=== PATIENT | male | born 1960 | race African-American/Black ===

== ENCOUNTER 2017-10-27 22:12 | Inpatient (IN) | payer OTHER ==
[~2017-10-27] VITALS: Ht 182.9 cm; Wt 90.7 kg
[2017-10-27] MEDS ORDERED: TRANEXAMIC ACID 1,000 MG in SODIUM CHLORIDE 0.9% 100 ML IV ONE (23:00)
[2017-10-27] MEDS ORDERED: THROMBIN (BOVINE) 5000 UNITS/VIAL TOP ONE (23:00)
[2017-10-27 23:15] LABS: HEMATOCRIT 27.1 % (42.0-52.0); HEMOGLOBIN 7.9 g/dL (14.0-18.0); MEAN CORPUSCULAR HEMOGLOBIN 26.9 pg (28.0-32.0); MEAN CORPUSCULAR VOLUME 92.6 fL (80.0-94.0); PLATELET 550 x1000/uL (130-400); RED BLOOD CELL COUNT 2.93 mill/uL (4.7-6.1); RED CELL DISTRIBUTION WIDTH 17.5 % (11.6-14.6)
[2017-10-27] MEDS ORDERED: SODIUM CHLORIDE 0.9% 1,000 ML IV ONE (23:45)
[2017-10-28] VITALS (59 sets, daily range): BP systolic 105–140; BP diastolic 60–87
[2017-10-28] MEDS ORDERED: MORPHINE SULFATE 10 MG/ML CPJ IV SCH (00:15)
[2017-10-28] MEDS ORDERED: MORPHINE SULFATE 10 MG/ML CPJ IV ONE (00:15)
[2017-10-28] MEDS: INSULIN REGULAR (DRIP) 100 UNITS in SODIUM CHLORIDE 0.9% 100 ML IV SCH ×4 (00:19→21:41)
[2017-10-28] MEDS ORDERED: LEVOFLOXACIN 750MG PREMIX 150 ML IV SCH (00:24)
[2017-10-28 00:40] LABS: PARTIAL THROMBOPLASTIN TIME 58.5 sec (23.4-31.0)
[2017-10-28 01:00] LABS: PROTHROMBIN TIME 102.7 sec (9.4-11.6)
[2017-10-28 01:01] LABS: INR 9.8
[2017-10-28 02:13] LABS: PHOSPHORUS 6.9 mg/dL (2.5-4.9)
[2017-10-28] MEDS ORDERED: PHYTONADIONE 10MG/ML AMP IV SCH (02:37)
[2017-10-28 04:02] LABS: CLARITY URINE CLEAR (CLEAR); COLOR URINE YELLOW (YELLOW); KETONES URINE TRACE (NEGATIVE); LEUKOCYTE ESTERASE URINE NEGATIVE (NEGATIVE); NITRITE URINE NEGATIVE (NEGATIVE); OCCULT BLOOD URINE NEGATIVE (NEGATIVE); PROTEIN URINE NEGATIVE (NEGATIVE); SPECIFIC GRAVITY URINE 1.022 (1.005-1.030)
[2017-10-28] MEDS ORDERED: SODIUM CHLORIDE 0.9% 1,000 ML IV ONE (05:00)
[2017-10-28 05:48] LABS: PHOSPHORUS 6.1 mg/dL (2.5-4.9)
[2017-10-28] MEDS: SODIUM CHLORIDE 0.9% 1,000 ML IV SCH ×3 (09:43→19:00)
[2017-10-28] MEDS ORDERED: VERAPAMIL HCL 2.5 MG/1 ML 2ML VIAL IV PRN (10:15)
[2017-10-28] MEDS ORDERED: MORPHINE SULFATE 4 MG/ML CPJ (NOT FOR IM USE) IV PRN (10:30)
[2017-10-28] MEDS ORDERED: HYDROCODONE/ACETAMINOPHEN 5/325MG TABLET PO PRN (10:30)
[2017-10-28] MEDS ORDERED: BUME2TAB3 PO (10:52)
[2017-10-28] MEDS ORDERED: BOSE62.5 PO (10:52)
[2017-10-28] MEDS ORDERED: DIGO125T82 PO (10:52)
[2017-10-28] MEDS ORDERED: POTA10TA2 PO (10:52)
[2017-10-28] MEDS ORDERED: WARF5TAB73 PO (10:52)
[2017-10-28] MEDS ORDERED: DOXY100C42 PO (10:52)
[2017-10-28] MEDS ORDERED: VIAG50 PO (10:52)
[2017-10-28] MEDS ORDERED: AMOX-424 PO (10:52)
[2017-10-28] MEDS ORDERED: SPIR25TA4 PO (10:52)
[2017-10-28] MEDS ORDERED: VANCOMYCIN 1500MG in DEXTROSE 5% WATER 250ML IV SCH (12:00)
[2017-10-28] MEDS ORDERED: DEXTROSE 50% WATER 50ML SYRINGE IV PRN ×2 (12:30)
[2017-10-28 12:41] LABS: INR 2.6; PROTHROMBIN TIME 27.2 sec (9.4-11.6)
[2017-10-28 12:58] LABS: CHLORIDE 89 mEq/L (98-107)
[2017-10-28] MEDS: PANTOPRAZOLE SODIUM 40 MG/VIAL IV SCH (13:02)
[2017-10-28] MEDS: BLOOD SUGAR DIAGNOSTIC STRIP TEST SCH ×11 (13:26→23:12)
[2017-10-28] MEDS: FOLIC ACID/VITAMIN B COMP W-C TABLET PO SCH (13:52)
[2017-10-28] MEDS: PIPERACILLIN/TAZ 2.25G PREMIX 50 ML IV SCH ×2 (13:52→22:00)
[2017-10-28] MEDS ORDERED: PIPERACILLIN/TAZ 3.375G PREMIX 50 ML IV SCH (14:00)
[2017-10-28] MEDS: CALCIUM ACETATE 667MG CAPSULE PO SCH (17:18)
[2017-10-28] MEDS ORDERED: INSULIN GLARGINE UD 100 UNITS/ML SYR SUBCUT ONE (22:30)
[2017-10-29] VITALS (29 sets, daily range): BP systolic 100–128; BP diastolic 51–75
[2017-10-29] MEDS: PIPERACILLIN/TAZ 2.25G PREMIX 50 ML IV SCH ×3 (05:00→23:01)
[2017-10-29 06:07] LABS: MEAN CORPUSCULAR HEMOGLOBIN 25.8 pg (28.0-32.0); MEAN PLATELET VOLUME 7.8 fl (7.4-10.4); PLATELET 446 x1000/uL (130-400); RED BLOOD CELL COUNT 2.53 mill/uL (4.7-6.1); RED CELL DISTRIBUTION WIDTH 15.7 % (11.6-14.6)
[2017-10-29] MEDS: BLOOD SUGAR DIAGNOSTIC STRIP TEST SCH ×4 (06:59→21:00)
[2017-10-29] MEDS: INSULIN LISPRO 100 UNITS/ML SUBCUT SCH ×7 (07:05→22:05)
[2017-10-29] MEDS: CALCIUM ACETATE 667MG CAPSULE PO SCH ×3 (07:35→18:08)
[2017-10-29 07:53] LABS: HEMOGLOBIN. 6.5 g/dL (14.0-18.0)
[2017-10-29 07:54] LABS: HEMATOCRIT. 20.5 % (42.0-52.0)
[2017-10-29] MEDS: PANTOPRAZOLE SODIUM 40 MG/VIAL IV SCH (08:29)
[2017-10-29] MEDS: FOLIC ACID/VITAMIN B COMP W-C TABLET PO SCH (08:29)
[2017-10-29 09:50] LABS: PLATELET ESTIMATE SLIGHTLY INCREASED
[2017-10-29] MEDS: DILTIAZEM HCL 30MG TABLET PO SCH ×2 (12:57→21:55)
[2017-10-29 14:38] LABS: HEMATOCRIT 22.9 % (42.0-52.0); HEMOGLOBIN 7.4 g/dL (14.0-18.0)
[2017-10-29 14:45] LABS: INR 1.3
[2017-10-29] MEDS ORDERED: VANCOMYCIN 1250MG in DEXTROSE 5% WATER 250ML IV NR (17:00)
[2017-10-29] MEDS ORDERED: DIGOXIN 125MCG TABLET PO SCH (18:00)
[2017-10-29] MEDS ORDERED: INSULIN GLARGINE UD 100 UNITS/ML SYR SUBCUT SCH (22:00)
[2017-10-30] VITALS: BP 115/62
[2017-10-30 04:00] VITALS: BP 108/53
[2017-10-30] MEDS: DILTIAZEM HCL 30MG TABLET PO SCH (05:48)
[2017-10-30] MEDS: PIPERACILLIN/TAZ 2.25G PREMIX 50 ML IV SCH (05:49)
[2017-10-30 06:15] LABS: HEMATOCRIT. 22.2 % (42.0-52.0); HEMOGLOBIN. 7.3 g/dL (14.0-18.0); MEAN CORPUSCULAR HEMOGLOBIN 26.9 pg (28.0-32.0); MEAN CORPUSCULAR VOLUME 82.1 fL (80.0-94.0); MEAN PLATELET VOLUME 8.1 fl (7.4-10.4); PLATELET 395 x1000/uL (130-400); RED BLOOD CELL COUNT 2.71 mill/uL (4.7-6.1); RED CELL DISTRIBUTION WIDTH 15.6 % (11.6-14.6)
[2017-10-30] MEDS: BLOOD SUGAR DIAGNOSTIC STRIP TEST SCH (06:28)
[2017-10-30] MEDS: INSULIN LISPRO 100 UNITS/ML SUBCUT SCH ×2 (06:28)
[2017-10-30 08:00] VITALS: BP 106/58
[2017-10-30 13:06] LABS: PLATELET ESTIMATE NORMAL
[2017-10-30] MEDS ORDERED: EPOETIN ALFA 10000UNITS/ML VIAL SUBCUT SCH (21:00)
== END 2017-10-30 09:07 | disposition short-term general hospital (02) | DRG 871 ==
LOC: ER 22:29 → MICUNO 10-28 00:05 → ENRESERV 10-28 07:11 → 8WST 10-29 14:50
PROVIDERS: ADMIT Internal Medicine; ATTEND Internal Medicine
PROC: 30233N1 Transfusion of Nonautologous Red Blood Cells into Peripheral Vein, Percutaneous Approach (ICD-10-PCS; 2017-10-28)
PROC: 30233L1 Transfusion of Nonautologous Fresh Plasma into Peripheral Vein, Percutaneous Approach (ICD-10-PCS; principal; 2017-10-29)
PROC: 30233K1 Transfusion of Nonautologous Frozen Plasma into Peripheral Vein, Percutaneous Approach (ICD-10-PCS; 2017-10-29)
DX: A41.9 Sepsis, unspecified organism (principal); I50.23 Acute on chronic systolic (congestive) heart failure; I13.2 Hypertensive heart and chronic kidney disease with heart failure and with stage 5 chronic kidney disease, or end stage renal disease; E11.10 Type 2 diabetes mellitus with ketoacidosis without coma; D68.9 Coagulation defect, unspecified; E11.22 Type 2 diabetes mellitus with diabetic chronic kidney disease; E11.51 Type 2 diabetes mellitus with diabetic peripheral angiopathy without gangrene; N18.6 End stage renal disease; E83.39 Other disorders of phosphorus metabolism; E87.1 Hypo-osmolality and hyponatremia; I42.9 Cardiomyopathy, unspecified; W10.8XXA Fall (on) (from) other stairs and steps, initial encounter; I48.2 Chronic atrial fibrillation; S81.812A Laceration without foreign body, left lower leg, initial encounter; S81.811A Laceration without foreign body, right lower leg, initial encounter; E83.41 Hypermagnesemia; E87.5 Hyperkalemia; T45.515A Adverse effect of anticoagulants, initial encounter; D64.9 Anemia, unspecified; I89.0 Lymphedema, not elsewhere classified; E86.9 Volume depletion, unspecified; I27.20 Pulmonary hypertension, unspecified; I87.8 Other specified disorders of veins; Z79.01 Long term (current) use of anticoagulants; Z79.4 Long term (current) use of insulin; Z82.49 Family history of ischemic heart disease and other diseases of the circulatory system; Z83.3 Family history of diabetes mellitus; Z86.73 Personal history of transient ischemic attack (TIA), and cerebral infarction without residual deficits; Z99.2 Dependence on renal dialysis; Y93.89 Activity, other specified; Y92.89 Other specified places as the place of occurrence of the external cause; Y99.8 Other external cause status; Z88.8 Allergy status to other drugs, medicaments and biological substances; Z89.432 Acquired absence of left foot
CPT/HCPCS: 36415; 36430; 71045; 73560; 80048; 80053; 80162; 80202; 81003; 82010; 82962; 83605; 83735; 83880; 84100; 85014; 85018; 85025; 85027; 85610; 85730; 86850; 86900; 86920; 86927; 87040; 87070; 87205; 89050; 93005; 93306; 93923; 96372; 96374; 96375; 99291; 99292; C9113; J1815; J1956; J2270; J2543; J3370; J3430; J3490; J7030; J7040; J7050; J7060; P9016; P9017

== ENCOUNTER 2018-11-20 19:32 | Inpatient (IN) | payer MEDICARE, MEDICAID ==
[~2018-11-20] VITALS: Ht 175.3 cm; Wt 69.4 kg
[~2018-11-20 19:32] MED LIST: AMOX-424 PO; BOSE62.5 PO; BUME2TAB3 PO; DIGO125T82 PO; DOXY100C42 PO; POTA10TA2 PO; SPIR25TA6 PO; VIAG50 PO; WARF-53 PO
[2018-11-20] MEDS ORDERED: SODIUM CHLORIDE 0.9% 1,000 ML IV ONE ×2 (19:58→22:15)
[2018-11-20 22:38] LABS: BASOPHILS % 1.5 % (0.0-2.0); EOSINOPHILS % 3.8 % (0.0-5.0); HEMATOCRIT. 36.4 % (42.0-52.0); HEMOGLOBIN. 11.4 g/dL (14.0-18.0); LYMPHOCYTES % 9.6 % (20.0-50.0); MEAN CORPUSCULAR HEMOGLOBIN 28.6 pg (28.0-32.0); MEAN CORPUSCULAR VOLUME 91.4 fL (80.0-94.0); MEAN PLATELET VOLUME 8.3 fl (7.4-10.4); MONOCYTES % 13.5 % (2.0-8.0); NEUTROPHILS % 71.6 % (40.0-76.0); PLATELET 210 x1000/uL (130-400); RED BLOOD CELL COUNT 3.98 mill/uL (4.7-6.1); RED CELL DISTRIBUTION WIDTH 21.1 % (11.6-14.6)
[2018-11-20 22:42] LABS: CHLORIDE 97 mEq/L (98-107)
[2018-11-20 23:25] LABS: INR 3.2; PROTHROMBIN TIME 31.6 sec (9.1-11.1)
[2018-11-20] MEDS ORDERED: ASPIRIN 81MG TABLET PO ONE (23:45)
[2018-11-21] VITALS (91 sets, daily range): BP systolic 73–152; BP diastolic 31–100
[2018-11-21] MEDS ORDERED: DOPAMINE 400MG/250ML PREMIX 250 ML IV ONE ×2 (00:30→02:30)
[2018-11-21] MEDS ORDERED: ENOXAPARIN 30MG/0.3ML SYR SUBCUT ONE (00:45)
[2018-11-21] MEDS ORDERED: ONDANSETRON HCL 4MG/2ML INJ IV ONE (01:00)
[2018-11-21] MEDS ORDERED: CEFTRIAXONE 1 G PREMIX 50 ML IV SCH (02:15)
[2018-11-21] MEDS ORDERED: DIPHENHYDRAMINE 50MG/ML VIAL IV PRN (02:30)
[2018-11-21] MEDS ORDERED: ENOXAPARIN 40MG/0.4ML SYR SUBCUT SCH (02:30)
[2018-11-21] MEDS ORDERED: HYDROCODONE/ACETAMINOPHEN 10/325MG TABLET PO PRN (02:30)
[2018-11-21] MEDS ORDERED: MAGNESIUM/ALUMINUM HYDROXIDE/SIMETHICONE 30ML UDC PO PRN (02:30)
[2018-11-21] MEDS ORDERED: CLONIDINE 0.1MG TABLET PO PRN (02:30)
[2018-11-21] MEDS ORDERED: DOCUSATE SODIUM 100MG CAPSULE PO PRN (02:30)
[2018-11-21] MEDS ORDERED: HYDRALAZINE 20MG/ML VIAL IV PRN (02:30)
[2018-11-21] MEDS ORDERED: ACETAMINOPHEN 325MG TABLET PO PRN (02:30)
[2018-11-21] MEDS ORDERED: HYDROMORPHONE HCL/PF 2MG/ML CPJ IV PRN (02:30)
[2018-11-21] MEDS ORDERED: DEXTROSE 50% WATER 50ML SYRINGE IV PRN (02:45)
[2018-11-21] MEDS ORDERED: AZITHROMYCIN 500 MG in DEXT 5% WATER 250 ML IV SCH (03:00)
[2018-11-21] MEDS ORDERED: NOREPINEPHRINE 4 MG in DEXT 5% WATER 246 ML IV SCH ×4 (03:30)
[2018-11-21] MEDS: ONDANSETRON HCL 4MG/2ML INJ IV PRN (03:39)
[2018-11-21 05:23] LABS: CREATINE KINASE MB FRACTION 16.9 ng/mL (0.5-3.6)
[2018-11-21] MEDS: SODIUM CHLORIDE 0.9% INJ 3ML FLUSH IVF SCH ×3 (06:00→21:42)
[2018-11-21] MEDS: BLOOD SUGAR DIAGNOSTIC STRIP TEST SCH ×4 (07:50→21:12)
[2018-11-21] MEDS: INSULIN LISPRO 100 UNITS/ML SUBCUT SCH ×5 (08:20→21:47)
[2018-11-21] MEDS ORDERED: ENOXAPARIN 30MG/0.3ML SYR SUBCUT SCH (09:00)
[2018-11-21] MEDS: ASPIRIN 81MG EC TABLET PO SCH (11:00)
[2018-11-21] MEDS ORDERED: [UNRECOGNIZED DRUG - OTHER] XX SCH (12:00)
[2018-11-21] MEDS ORDERED: PHYTONADIONE 10 MG/10 ML ORALSYR PO NR (12:00)
[2018-11-21 12:48] LABS: CLARITY URINE CLEAR (CLEAR); COLOR URINE DARK YELLOW (YELLOW); KETONES URINE 1+ (NEGATIVE); LEUKOCYTE ESTERASE URINE 1+ (NEGATIVE); NITRITE URINE NEGATIVE (NEGATIVE); OCCULT BLOOD URINE NEGATIVE (NEGATIVE); PROTEIN URINE 1+ (NEGATIVE); SPECIFIC GRAVITY URINE 1.032 (1.005-1.030)
[2018-11-21 13:20] LABS: *BARBITURATES SCREEN URINE NEGATIVE (NEGATIVE); *BENZODIAZEPINES SCREEN URINE NEGATIVE (NEGATIVE); *COCAINE SCREEN URINE NEGATIVE (NEGATIVE); PHENCYCLIDINE URINE SCREEN NEGATIVE (NEGATIVE)
[2018-11-21 13:21] LABS: *AMPHETAMINES SCREEN URINE NEGATIVE (NEGATIVE); CANNABINOID URINE SCREEN NEGATIVE (NEGATIVE); METHADONE URINE SCREEN NEGATIVE (NEGATIVE); OPIATES URINE SCREEN NEGATIVE (NEGATIVE)
[2018-11-21] MEDS ORDERED: VANCOMYCIN 1500MG in DEXTROSE 5% WATER 250ML IV NR (17:00)
[2018-11-21] MEDS ORDERED: PHENYLEPHRINE 10 MG in DEXT 5% WATER 249 ML IV PRN (18:00)
[2018-11-21] MEDS: MIDODRINE HCL 5MG TABLET PO SCH (18:40)
[2018-11-21 21:46] LABS: CREATINE KINASE MB FRACTION 12.8 ng/mL (0.5-3.6)
[2018-11-21] MEDS: PHENYLEPHRINE 80 MG in DEXT 5% WATER 492 ML IV PRN (22:37)
[2018-11-22] VITALS (100 sets, daily range): BP systolic 66–121; BP diastolic 34–86
[2018-11-22] MEDS: CEFTRIAXONE 1 G PREMIX 50 ML IV SCH (02:05)
[2018-11-22] MEDS ORDERED: AZITHROMYCIN 500 MG in DEXT 5% WATER 250 ML IV SCH (03:00)
[2018-11-22] MEDS: ONDANSETRON HCL 4MG/2ML INJ IV PRN ×3 (03:55→22:31)
[2018-11-22] MEDS: SODIUM CHLORIDE 0.9% INJ 3ML FLUSH IVF SCH ×3 (05:00→22:31)
[2018-11-22 05:19] LABS: HEMOGLOBIN. 11.9 g/dL (14.0-18.0); MEAN CORPUSCULAR HEMOGLOBIN 28.6 pg (28.0-32.0); MEAN CORPUSCULAR VOLUME 91.7 fL (80.0-94.0); MEAN PLATELET VOLUME 8.3 fl (7.4-10.4); PLATELET 277 x1000/uL (130-400); RED BLOOD CELL COUNT 4.15 mill/uL (4.7-6.1); RED CELL DISTRIBUTION WIDTH 20.3 % (11.6-14.6)
[2018-11-22 05:25] LABS: CHLORIDE 92 mEq/L (98-107)
[2018-11-22 05:34] LABS: HDL CHOLESTEROL 64 mg/dL (40-59)
[2018-11-22 05:36] LABS: LDL CHOLESTEROL 73 mg/dL (5-100)
[2018-11-22 05:37] LABS: CREATINE KINASE 135 IU/L (39-308); D-DIMER 1.73 mg/L FEU (<0.50); INR 1.7; PROTHROMBIN TIME 17.3 sec (9.1-11.1)
[2018-11-22 05:39] LABS: CREATINE KINASE MB FRACTION 12.2 ng/mL (0.5-3.6)
[2018-11-22] MEDS: PHENYLEPHRINE 80 MG in DEXT 5% WATER 492 ML IV PRN ×2 (07:59→15:44)
[2018-11-22] MEDS: ASPIRIN 81MG EC TABLET PO SCH (08:06)
[2018-11-22] MEDS: GUAIFENESIN 200MG/10ML SUGAR FREE UDC PO PRN (08:06)
[2018-11-22] MEDS: MIDODRINE HCL 5MG TABLET PO SCH ×3 (08:06→17:23)
[2018-11-22] MEDS: BLOOD SUGAR DIAGNOSTIC STRIP TEST SCH ×4 (08:16→20:44)
[2018-11-22] MEDS: INSULIN LISPRO 100 UNITS/ML SUBCUT SCH ×4 (08:54→21:01)
[2018-11-22] MEDS: SILVER SULFADIAZINE 1% CREAM 50GM TOP SCH (09:11)
[2018-11-22] MEDS: NOREPINEPHRINE 16 MG in DEXT 5% WATER 484 ML IV PRN (10:50)
[2018-11-22] MEDS: INSULIN GLARGINE UD 100 UNITS/ML SYR SUBCUT SCH (12:49)
[2018-11-22 13:45] LABS: PLATELET ESTIMATE NORMAL
[2018-11-22] MEDS ORDERED: ENOXAPARIN 40MG/0.4ML SYR SUBCUT NR (20:00)
[2018-11-22] MEDS: DOXYCYCLINE HYCLATE 100MG CAPSULE PO SCH (20:54)
[2018-11-23] VITALS (98 sets, daily range): BP systolic 69–135; BP diastolic 25–86
[2018-11-23] MEDS: PHENYLEPHRINE 80 MG in DEXT 5% WATER 492 ML IV PRN ×3 (00:10→16:58)
[2018-11-23] MEDS: CEFTRIAXONE 1 G PREMIX 50 ML IV SCH (02:30)
[2018-11-23] MEDS: LORAZEPAM 2MG/ML CPJ IV PRN (02:30)
[2018-11-23] MEDS: SODIUM CHLORIDE 0.9% INJ 3ML FLUSH IVF SCH ×3 (05:44→21:21)
[2018-11-23 05:46] LABS: INR 1.3; PROTHROMBIN TIME 13.2 sec (9.1-11.1)
[2018-11-23 05:51] LABS: HEMATOCRIT. 40.4 % (42.0-52.0); HEMOGLOBIN. 12.6 g/dL (14.0-18.0); MEAN CORPUSCULAR HEMOGLOBIN 28.5 pg (28.0-32.0); MEAN CORPUSCULAR VOLUME 91.6 fL (80.0-94.0); MEAN PLATELET VOLUME 8.7 fl (7.4-10.4); PLATELET 290 x1000/uL (130-400); RED BLOOD CELL COUNT 4.41 mill/uL (4.7-6.1); RED CELL DISTRIBUTION WIDTH 20.3 % (11.6-14.6)
[2018-11-23] MEDS: BLOOD SUGAR DIAGNOSTIC STRIP TEST SCH ×4 (07:50→21:22)
[2018-11-23] MEDS: ASPIRIN 81MG EC TABLET PO SCH (08:56)
[2018-11-23] MEDS: MIDODRINE HCL 5MG TABLET PO SCH ×3 (08:56→17:15)
[2018-11-23] MEDS: DOXYCYCLINE HYCLATE 100MG CAPSULE PO SCH ×2 (08:56→21:21)
[2018-11-23] MEDS: INSULIN LISPRO 100 UNITS/ML SUBCUT SCH ×4 (08:57→21:28)
[2018-11-23] MEDS: SILVER SULFADIAZINE 1% CREAM 50GM TOP SCH (08:59)
[2018-11-23] MEDS: INSULIN GLARGINE UD 100 UNITS/ML SYR SUBCUT SCH (10:12)
[2018-11-23] MEDS: BENZONATATE 100MG CAPSULE PO PRN (10:22)
[2018-11-23] MEDS ORDERED: INSULIN GLARGINE UD 100 UNITS/ML SYR SUBCUT NR (12:00)
[2018-11-23 12:04] LABS: PLATELET ESTIMATE NORMAL
[2018-11-23] MEDS ORDERED: ENOXAPARIN 60MG/0.6ML SYR SUBCUT NR (12:05)
[2018-11-23] MEDS: PANTOPRAZOLE SODIUM 40 MG/VIAL IV SCH (12:31)
[2018-11-23] MEDS: METOCLOPRAMIDE HCL 10MG/2ML VIAL IV SCH ×2 (12:32→17:12)
[2018-11-23] MEDS: GUAIFENESIN 600MG ER TABLET PO SCH (21:21)
[2018-11-24] VITALS (90 sets, daily range): BP systolic 85–133; BP diastolic 25–107
[2018-11-24] MEDS: METOCLOPRAMIDE HCL 10MG/2ML VIAL IV SCH ×4 (00:20→17:56)
[2018-11-24] MEDS: PHENYLEPHRINE 80 MG in DEXT 5% WATER 492 ML IV PRN ×2 (00:21→17:09)
[2018-11-24] MEDS: CEFTRIAXONE 1 G PREMIX 50 ML IV SCH (01:52)
[2018-11-24] MEDS: IPRATROPIUM BROMIDE (0.02%) 0.5MG/2.5ML NEB HHN SCH ×5 (01:57→20:14)
[2018-11-24] MEDS: SODIUM CHLORIDE 0.9% INJ 3ML FLUSH IVF SCH ×3 (06:03→22:39)
[2018-11-24 07:41] LABS: HEMATOCRIT 39.2 % (42.0-52.0); HEMOGLOBIN 12.2 g/dL (14.0-18.0); MEAN CORPUSCULAR HEMOGLOBIN 28.5 pg (28.0-32.0); PLATELET 253 x1000/uL (130-400); RED BLOOD CELL COUNT 4.27 mill/uL (4.7-6.1)
[2018-11-24] MEDS: INSULIN LISPRO 100 UNITS/ML SUBCUT SCH ×4 (08:20→21:00)
[2018-11-24] MEDS: BLOOD SUGAR DIAGNOSTIC STRIP TEST SCH ×5 (08:22→21:16)
[2018-11-24] MEDS: MIDODRINE HCL 5MG TABLET PO SCH ×3 (08:25→17:56)
[2018-11-24] MEDS: ASPIRIN 81MG EC TABLET PO SCH (08:26)
[2018-11-24] MEDS: PANTOPRAZOLE SODIUM 40 MG/VIAL IV SCH (08:26)
[2018-11-24] MEDS: DOXYCYCLINE HYCLATE 100MG CAPSULE PO SCH ×2 (08:26→20:53)
[2018-11-24] MEDS: GUAIFENESIN 600MG ER TABLET PO SCH ×2 (08:26→20:52)
[2018-11-24] MEDS: SILVER SULFADIAZINE 1% CREAM 50GM TOP SCH (08:27)
[2018-11-24] MEDS: IPRATROPIUM/ALBUTEROL 0.5-3(2.5)MG/3ML NEB INH PRN (08:41)
[2018-11-24] MEDS: INSULIN GLARGINE UD 100 UNITS/ML SYR SUBCUT SCH (12:03)
[2018-11-24] MEDS: NOREPINEPHRINE 16 MG in DEXT 5% WATER 484 ML IV PRN (12:19)
[2018-11-24 12:20] LABS: INR 1.4
[2018-11-25] VITALS (92 sets, daily range): BP systolic 90–129; BP diastolic 21–93
[2018-11-25] MEDS: METOCLOPRAMIDE HCL 10MG/2ML VIAL IV SCH ×4 (00:02→18:24)
[2018-11-25] MEDS: CEFTRIAXONE 1 G PREMIX 50 ML IV SCH (02:54)
[2018-11-25] MEDS: LORAZEPAM 2MG/ML CPJ IV PRN ×3 (04:17→17:04)
[2018-11-25] MEDS: SODIUM CHLORIDE 0.9% INJ 3ML FLUSH IVF SCH ×3 (05:05→22:39)
[2018-11-25 05:48] LABS: HEMATOCRIT. 38.2 % (42.0-52.0); HEMOGLOBIN. 11.9 g/dL (14.0-18.0); INR 1.3; MEAN CORPUSCULAR HEMOGLOBIN 28.7 pg (28.0-32.0); MEAN CORPUSCULAR VOLUME 91.8 fL (80.0-94.0); MEAN PLATELET VOLUME 8.9 fl (7.4-10.4); PLATELET 277 x1000/uL (130-400); RED BLOOD CELL COUNT 4.16 mill/uL (4.7-6.1); RED CELL DISTRIBUTION WIDTH 20.3 % (11.6-14.6)
[2018-11-25] MEDS: PHENYLEPHRINE 80 MG in DEXT 5% WATER 492 ML IV PRN (07:48)
[2018-11-25] MEDS: DOXYCYCLINE HYCLATE 100MG CAPSULE PO SCH (08:46)
[2018-11-25] MEDS: ASPIRIN 81MG EC TABLET PO SCH (08:46)
[2018-11-25] MEDS: GUAIFENESIN 600MG ER TABLET PO SCH ×2 (08:46→21:00)
[2018-11-25] MEDS: BLOOD SUGAR DIAGNOSTIC STRIP TEST SCH ×4 (08:46→21:00)
[2018-11-25] MEDS: PANTOPRAZOLE SODIUM 40 MG/VIAL IV SCH (08:47)
[2018-11-25] MEDS: MIDODRINE HCL 5MG TABLET PO SCH ×3 (08:47→16:46)
[2018-11-25] MEDS: INSULIN LISPRO 100 UNITS/ML SUBCUT SCH ×4 (08:49→21:00)
[2018-11-25] MEDS: SILVER SULFADIAZINE 1% CREAM 50GM TOP SCH (08:51)
[2018-11-25] MEDS: ONDANSETRON HCL 4MG/2ML INJ IV PRN (08:55)
[2018-11-25 09:27] LABS: PLATELET ESTIMATE NORMAL
[2018-11-25] MEDS: INSULIN GLARGINE UD 100 UNITS/ML SYR SUBCUT SCH (10:40)
[2018-11-25] MEDS: IPRATROPIUM BROMIDE (0.02%) 0.5MG/2.5ML NEB HHN SCH ×3 (10:50→20:46)
[2018-11-25] MEDS ORDERED: NOREPINEPHRINE 16 MG in SODIUM CHLORIDE 0.9% 484 ML IV PRN (12:00)
[2018-11-25] MEDS ORDERED: NOREPINEPHRINE 16 MG in DEXT 5% WATER 484 ML IV PRN (12:00)
[2018-11-25] MEDS ORDERED: ENOXAPARIN 60MG/0.6ML SYR SUBCUT SCH (13:15)
[2018-11-25] MEDS ORDERED: LEVOFLOXACIN 250MG TABLET PO NR (15:30)
[2018-11-25 18:08] LABS: BG BASE EXCESS -7.5 mmol/L (-2.0-2.0); BG CARBOXYHEMOGLOBIN 0.6 % (0.5-1.5); BG DEOXYHEMOGLOBIN 1.6 % (0.0-5.0); BG HCO3 ACT 17.3 mmol/L (22.0-26.0); BG METHEMOGLOBIN 0.3 % (0.0-1.5); BG OXYGEN SATURATION 98.4 % (92.0-98.5); BG OXYHEMOGLOBIN 97.5 % (94.0-97.0); BG PCO2 32.7 mmHg (35.0-45.0); BG PH 7.341 (7.350-7.450); BG PO2 130.1 mmHg (75.0-100.0); BG SAMPLE SITE RIGHT RADIAL; BG TOTAL HEMOGLOBIN 12.1 g/dL (12.0-18.0); BG VENT MODE NASAL CANNULA
[2018-11-25] MEDS: DEXTROSE 50% WATER 50ML SYRINGE IV PRN (18:10)
[2018-11-25] MEDS: DEXT 5%/0.9% NACL 1,000 ML IV SCH (20:09)
[2018-11-26] VITALS (85 sets, daily range): BP systolic 82–119; BP diastolic 48–90
[2018-11-26] MEDS: METOCLOPRAMIDE HCL 10MG/2ML VIAL IV SCH ×5 (00:47→23:50)
[2018-11-26] MEDS: IPRATROPIUM BROMIDE (0.02%) 0.5MG/2.5ML NEB HHN SCH ×4 (01:31→20:49)
[2018-11-26] MEDS: SODIUM CHLORIDE 0.9% INJ 3ML FLUSH IVF SCH ×3 (05:43→22:00)
[2018-11-26] MEDS: INSULIN LISPRO 100 UNITS/ML SUBCUT SCH ×4 (07:39→21:23)
[2018-11-26] MEDS: BLOOD SUGAR DIAGNOSTIC STRIP TEST SCH ×4 (07:39→21:16)
[2018-11-26] MEDS: PANTOPRAZOLE SODIUM 40 MG/VIAL IV SCH (09:09)
[2018-11-26] MEDS: INSULIN GLARGINE UD 100 UNITS/ML SYR SUBCUT SCH (09:10)
[2018-11-26] MEDS: ASPIRIN 81MG EC TABLET PO SCH (09:10)
[2018-11-26] MEDS: MIDODRINE HCL 5MG TABLET PO SCH ×3 (09:10→17:31)
[2018-11-26] MEDS: GUAIFENESIN 600MG ER TABLET PO SCH ×2 (09:10→21:48)
[2018-11-26] MEDS: SILVER SULFADIAZINE 1% CREAM 50GM TOP SCH (09:12)
[2018-11-26 09:17] LABS: HEMOGLOBIN. 11.6 g/dL (14.0-18.0); INR 1.4; MEAN CORPUSCULAR HEMOGLOBIN 28.6 pg (28.0-32.0); MEAN CORPUSCULAR VOLUME 91.2 fL (80.0-94.0); MEAN PLATELET VOLUME 8.5 fl (7.4-10.4); PLATELET 219 x1000/uL (130-400); PROTHROMBIN TIME 14.6 sec (9.6-11.0); RED BLOOD CELL COUNT 4.06 mill/uL (4.7-6.1); RED CELL DISTRIBUTION WIDTH 20.4 % (11.6-14.6)
[2018-11-26 10:45] LABS: PLATELET ESTIMATE NORMAL
[2018-11-26] MEDS ORDERED: ENOXAPARIN 60MG/0.6ML SYR SUBCUT NR (11:00)
[2018-11-26] MEDS: DEXT 5%/0.9% NACL 1,000 ML IV SCH (11:07)
[2018-11-26] MEDS: PHENYLEPHRINE 80 MG in SODIUM CHLORIDE 0.9% 492 ML IV PRN (14:09)
[2018-11-26] MEDS ORDERED: SODIUM CHLORIDE 0.45% SCH (17:00)
[2018-11-26] MEDS ORDERED: [UNRECOGNIZED DRUG - OTHER] SCH (17:00)
[2018-11-26] MEDS ORDERED: DEXT 10%/0.45% NACL 1,000 ML IV SCH (17:45)
[2018-11-26] MEDS: ONDANSETRON HCL 4MG/2ML INJ IV PRN (19:14)
[2018-11-27] VITALS (93 sets, daily range): BP systolic 68–121; BP diastolic 23–84
[2018-11-27] MEDS: PHENYLEPHRINE 80 MG in SODIUM CHLORIDE 0.9% 492 ML IV PRN ×3 (00:12→17:46)
[2018-11-27] MEDS: DEXT 10%/0.45% NACL 1,000 ML IV SCH (00:17)
[2018-11-27] MEDS: IPRATROPIUM BROMIDE (0.02%) 0.5MG/2.5ML NEB HHN SCH ×4 (04:03→20:42)
[2018-11-27] MEDS: ONDANSETRON HCL 4MG/2ML INJ IV PRN ×3 (04:23→21:09)
[2018-11-27] MEDS: SODIUM CHLORIDE 0.9% INJ 3ML FLUSH IVF SCH ×3 (06:27→21:33)
[2018-11-27 06:28] LABS: HEMATOCRIT. 38.7 % (42.0-52.0); HEMOGLOBIN. 12.1 g/dL (14.0-18.0); MEAN CORPUSCULAR VOLUME 93.1 fL (80.0-94.0); MEAN PLATELET VOLUME 8.8 fl (7.4-10.4); PLATELET 235 x1000/uL (130-400); RED BLOOD CELL COUNT 4.15 mill/uL (4.7-6.1); RED CELL DISTRIBUTION WIDTH 20.3 % (11.6-14.6)
[2018-11-27 06:32] LABS: INR 1.5
[2018-11-27] MEDS: METOCLOPRAMIDE HCL 10MG/2ML VIAL IV SCH ×3 (06:54→17:50)
[2018-11-27] MEDS: BLOOD SUGAR DIAGNOSTIC STRIP TEST SCH ×4 (07:50→20:53)
[2018-11-27 08:19] LABS: NUCLEATED RED BLOOD CELLS 2 /100 WBC; PLATELET ESTIMATE NORMAL
[2018-11-27] MEDS: ASPIRIN 81MG EC TABLET PO SCH (08:23)
[2018-11-27] MEDS: PANTOPRAZOLE SODIUM 40 MG/VIAL IV SCH (08:23)
[2018-11-27] MEDS: MIDODRINE HCL 5MG TABLET PO SCH ×4 (08:23→17:00)
[2018-11-27] MEDS: SILVER SULFADIAZINE 1% CREAM 50GM TOP SCH (08:23)
[2018-11-27] MEDS: GUAIFENESIN 600MG ER TABLET PO SCH ×2 (08:24→21:40)
[2018-11-27] MEDS: INSULIN LISPRO 100 UNITS/ML SUBCUT SCH ×4 (08:25→21:33)
[2018-11-27] MEDS: NOREPINEPHRINE 32 MG in SODIUM CHLORIDE 0.9% 468 ML IV PRN (09:25)
[2018-11-27] MEDS ORDERED: ENOXAPARIN 60MG/0.6ML SYR SUBCUT SCH (11:00)
[2018-11-27] MEDS: LEVOFLOXACIN 500MG TABLET PO SCH (11:25)
[2018-11-27] MEDS: INSULIN GLARGINE UD 100 UNITS/ML SYR SUBCUT SCH (11:26)
[2018-11-27] MEDS: MEGESTROL ACETATE 400 MG/10 ML UDC PO SCH (15:41)
[2018-11-28] VITALS (88 sets, daily range): BP systolic 74–127; BP diastolic 47–84
[2018-11-28] MEDS: METOCLOPRAMIDE HCL 10MG/2ML VIAL IV SCH ×5 (00:25→23:22)
[2018-11-28] MEDS: PHENYLEPHRINE 80 MG in SODIUM CHLORIDE 0.9% 492 ML IV PRN ×3 (01:26→17:13)
[2018-11-28 05:01] LABS: BASOPHILS % 1.1 % (0.0-2.0); EOSINOPHILS % 2.1 % (0.0-5.0); HEMATOCRIT. 40.7 % (42.0-52.0); HEMOGLOBIN. 12.8 g/dL (14.0-18.0); LYMPHOCYTES % 8.4 % (20.0-50.0); MEAN CORPUSCULAR HEMOGLOBIN 28.8 pg (28.0-32.0); MEAN CORPUSCULAR VOLUME 91.6 fL (80.0-94.0); MONOCYTES % 10.6 % (2.0-8.0); NEUTROPHILS % 77.8 % (40.0-76.0); PLATELET 202 x1000/uL (130-400); RED BLOOD CELL COUNT 4.45 mill/uL (4.7-6.1); RED CELL DISTRIBUTION WIDTH 20.2 % (11.6-14.6)
[2018-11-28] MEDS: SODIUM CHLORIDE 0.9% INJ 3ML FLUSH IVF SCH ×3 (06:41→22:00)
[2018-11-28] MEDS: IPRATROPIUM BROMIDE (0.02%) 0.5MG/2.5ML NEB HHN SCH ×3 (07:34→21:22)
[2018-11-28] MEDS: BLOOD SUGAR DIAGNOSTIC STRIP TEST SCH ×4 (07:50→20:52)
[2018-11-28] MEDS: INSULIN LISPRO 100 UNITS/ML SUBCUT SCH ×4 (08:20→20:52)
[2018-11-28] MEDS: DEXT 10%/0.45% NACL 1,000 ML IV SCH (08:41)
[2018-11-28] MEDS: GUAIFENESIN 600MG ER TABLET PO SCH ×2 (08:41→20:21)
[2018-11-28] MEDS: ASPIRIN 81MG EC TABLET PO SCH (08:41)
[2018-11-28] MEDS: MEGESTROL ACETATE 400 MG/10 ML UDC PO SCH (08:41)
[2018-11-28] MEDS: PANTOPRAZOLE SODIUM 40 MG/VIAL IV SCH (08:41)
[2018-11-28] MEDS: INSULIN GLARGINE UD 100 UNITS/ML SYR SUBCUT SCH (10:06)
[2018-11-28] MEDS: SILVER SULFADIAZINE 1% CREAM 50GM TOP SCH (10:06)
[2018-11-28] MEDS: MIDODRINE HCL 5MG TABLET PO SCH ×3 (10:06→17:12)
[2018-11-28] MEDS: ONDANSETRON HCL 4MG/2ML INJ IV PRN (10:08)
[2018-11-28] MEDS ORDERED: ENOXAPARIN 60MG/0.6ML SYR SUBCUT NR (11:30)
[2018-11-28] MEDS: DEXTROSE 50% WATER 50ML SYRINGE IV PRN (20:31)
[2018-11-29] VITALS (92 sets, daily range): BP systolic 81–116; BP diastolic 52–83
[2018-11-29] MEDS: PHENYLEPHRINE 80 MG in SODIUM CHLORIDE 0.9% 492 ML IV PRN ×3 (01:15→20:01)
[2018-11-29] MEDS: IPRATROPIUM BROMIDE (0.02%) 0.5MG/2.5ML NEB HHN SCH ×4 (02:45→21:26)
[2018-11-29] MEDS: METOCLOPRAMIDE HCL 10MG/2ML VIAL IV SCH ×4 (05:41→23:39)
[2018-11-29] MEDS: SODIUM CHLORIDE 0.9% INJ 3ML FLUSH IVF SCH ×2 (05:41→13:19)
[2018-11-29 06:27] LABS: BASOPHILS % 0.3 % (0.0-2.0); HEMATOCRIT. 39.9 % (42.0-52.0); HEMOGLOBIN. 12.4 g/dL (14.0-18.0); LYMPHOCYTES % 11.3 % (20.0-50.0); MEAN CORPUSCULAR HEMOGLOBIN 28.4 pg (28.0-32.0); MEAN CORPUSCULAR VOLUME 91.1 fL (80.0-94.0); MEAN PLATELET VOLUME 8.7 fl (7.4-10.4); MONOCYTES % 10.6 % (2.0-8.0); NEUTROPHILS % 74.8 % (40.0-76.0); PLATELET 198 x1000/uL (130-400); RED BLOOD CELL COUNT 4.37 mill/uL (4.7-6.1); RED CELL DISTRIBUTION WIDTH 20.7 % (11.6-14.6)
[2018-11-29] MEDS: LEVOFLOXACIN 500MG TABLET PO SCH (10:26)
[2018-11-29] MEDS: PANTOPRAZOLE SODIUM 40 MG/VIAL IV SCH (10:26)
[2018-11-29] MEDS: GUAIFENESIN 600MG ER TABLET PO SCH ×2 (10:26→20:49)
[2018-11-29] MEDS: MEGESTROL ACETATE 400 MG/10 ML UDC PO SCH (10:26)
[2018-11-29] MEDS: ASPIRIN 81MG EC TABLET PO SCH (10:26)
[2018-11-29] MEDS: MIDODRINE HCL 5MG TABLET PO SCH ×3 (10:27→17:58)
[2018-11-29] MEDS: SILVER SULFADIAZINE 1% CREAM 50GM TOP SCH (10:27)
[2018-11-29] MEDS: INSULIN GLARGINE UD 100 UNITS/ML SYR SUBCUT SCH (10:29)
[2018-11-29] MEDS: BLOOD SUGAR DIAGNOSTIC STRIP TEST SCH ×3 (12:09→20:43)
[2018-11-29] MEDS: INSULIN LISPRO 100 UNITS/ML SUBCUT SCH ×3 (12:09→20:43)
[2018-11-29] MEDS ORDERED: ENOXAPARIN 60MG/0.6ML SYR SUBCUT SCH (13:00)
[2018-11-29] MEDS: DEXT 10%/0.45% NACL 1,000 ML IV SCH (17:23)
[2018-11-30] VITALS (97 sets, daily range): BP systolic 84–133; BP diastolic 44–88
[2018-11-30] MEDS: IPRATROPIUM BROMIDE (0.02%) 0.5MG/2.5ML NEB HHN SCH ×4 (01:35→20:33)
[2018-11-30] MEDS: METOCLOPRAMIDE HCL 10MG/2ML VIAL IV SCH ×3 (05:31→18:21)
[2018-11-30] MEDS: BLOOD SUGAR DIAGNOSTIC STRIP TEST SCH ×4 (08:06→21:04)
[2018-11-30] MEDS: INSULIN LISPRO 100 UNITS/ML SUBCUT SCH ×4 (08:06→21:00)
[2018-11-30 08:28] LABS: BASOPHILS % 0.5 % (0.0-2.0); EOSINOPHILS % 3.6 % (0.0-5.0); HEMATOCRIT. 38.5 % (42.0-52.0); HEMOGLOBIN. 12.1 g/dL (14.0-18.0); LYMPHOCYTES % 7.1 % (20.0-50.0); MEAN CORPUSCULAR HEMOGLOBIN 28.6 pg (28.0-32.0); MEAN CORPUSCULAR VOLUME 90.5 fL (80.0-94.0); MEAN PLATELET VOLUME 8.8 fl (7.4-10.4); MONOCYTES % 12.6 % (2.0-8.0); NEUTROPHILS % 76.2 % (40.0-76.0); PLATELET 176 x1000/uL (130-400); RED BLOOD CELL COUNT 4.25 mill/uL (4.7-6.1); RED CELL DISTRIBUTION WIDTH 20.9 % (11.6-14.6)
[2018-11-30] MEDS: PANTOPRAZOLE SODIUM 40 MG/VIAL IV SCH (08:32)
[2018-11-30] MEDS: MEGESTROL ACETATE 400 MG/10 ML UDC PO SCH (08:32)
[2018-11-30] MEDS: ASPIRIN 81MG EC TABLET PO SCH (08:33)
[2018-11-30] MEDS: MIDODRINE HCL 5MG TABLET PO SCH ×3 (08:33→18:21)
[2018-11-30] MEDS: GUAIFENESIN 600MG ER TABLET PO SCH ×2 (08:33→21:14)
[2018-11-30] MEDS: SILVER SULFADIAZINE 1% CREAM 50GM TOP SCH (08:33)
[2018-11-30] MEDS: PHENYLEPHRINE 80 MG in SODIUM CHLORIDE 0.9% 492 ML IV PRN ×2 (10:03→19:23)
[2018-11-30] MEDS: INSULIN GLARGINE UD 100 UNITS/ML SYR SUBCUT SCH (12:51)
[2018-11-30] MEDS ORDERED: ENOXAPARIN 60MG/0.6ML SYR SUBCUT NR (13:00)
[2018-11-30] MEDS: ONDANSETRON HCL 4MG/2ML INJ IV PRN (21:31)
[2018-11-30] MEDS: NOREPINEPHRINE 32 MG in SODIUM CHLORIDE 0.9% 468 ML IV PRN (22:16)
[2018-12-01] VITALS (95 sets, daily range): BP systolic 71–110; BP diastolic 50–74
[2018-12-01] MEDS: METOCLOPRAMIDE HCL 10MG/2ML VIAL IV SCH ×4 (00:06→19:50)
[2018-12-01] MEDS: DEXT 10%/0.45% NACL 1,000 ML IV SCH (02:02)
[2018-12-01] MEDS: IPRATROPIUM BROMIDE (0.02%) 0.5MG/2.5ML NEB HHN SCH ×4 (02:17→20:46)
[2018-12-01] MEDS: PHENYLEPHRINE 80 MG in SODIUM CHLORIDE 0.9% 492 ML IV PRN ×2 (03:01→19:35)
[2018-12-01] MEDS: ONDANSETRON HCL 4MG/2ML INJ IV PRN ×3 (03:59→22:38)
[2018-12-01 05:32] LABS: HEMATOCRIT. 36.7 % (42.0-52.0); HEMOGLOBIN. 11.9 g/dL (14.0-18.0); MEAN CORPUSCULAR HEMOGLOBIN 28.8 pg (28.0-32.0); MEAN CORPUSCULAR VOLUME 88.9 fL (80.0-94.0); MEAN PLATELET VOLUME 8.5 fl (7.4-10.4); PLATELET 159 x1000/uL (130-400); RED BLOOD CELL COUNT 4.13 mill/uL (4.7-6.1); RED CELL DISTRIBUTION WIDTH 20.5 % (11.6-14.6)
[2018-12-01 06:43] LABS: NUCLEATED RED BLOOD CELLS 1 /100 WBC
[2018-12-01 06:44] LABS: PLATELET ESTIMATE NORMAL
[2018-12-01] MEDS: BLOOD SUGAR DIAGNOSTIC STRIP TEST SCH ×4 (07:50→20:42)
[2018-12-01] MEDS: INSULIN LISPRO 100 UNITS/ML SUBCUT SCH ×4 (08:20→20:42)
[2018-12-01] MEDS: GUAIFENESIN 600MG ER TABLET PO SCH ×2 (09:00→20:43)
[2018-12-01] MEDS: ASPIRIN 81MG EC TABLET PO SCH (09:00)
[2018-12-01] MEDS: MEGESTROL ACETATE 400 MG/10 ML UDC PO SCH (09:00)
[2018-12-01] MEDS: MIDODRINE HCL 5MG TABLET PO SCH ×3 (09:00→19:50)
[2018-12-01] MEDS: SILVER SULFADIAZINE 1% CREAM 50GM TOP SCH (09:19)
[2018-12-01] MEDS ORDERED: ENOXAPARIN 60MG/0.6ML SYR SUBCUT SCH (11:15)
[2018-12-01] MEDS: LEVOFLOXACIN 500MG TABLET PO SCH (12:20)
[2018-12-01] MEDS: INSULIN GLARGINE UD 100 UNITS/ML SYR SUBCUT SCH (12:31)
[2018-12-01] MEDS ORDERED: NOREPINEPHRINE 4 MG in DEXT 5% WATER 246 ML IV PRN (14:00)
[2018-12-01] MEDS ORDERED: POTASSIUM CHLORIDE 20MEQ TABLET SR PO SCH (14:30)
[2018-12-01] MEDS: ENOXAPARIN 60MG/0.6ML SYR SUBCUT SCH (19:50)
[2018-12-01] MEDS: GUAIFENESIN 200MG/10ML SUGAR FREE UDC PO PRN (22:46)
[2018-12-02] VITALS (91 sets, daily range): BP systolic 67–121; BP diastolic 37–74
[2018-12-02] MEDS: METOCLOPRAMIDE HCL 10MG/2ML VIAL IV SCH ×5 (00:17→23:52)
[2018-12-02] MEDS: IPRATROPIUM BROMIDE (0.02%) 0.5MG/2.5ML NEB HHN SCH ×4 (01:25→20:11)
[2018-12-02] MEDS: PHENYLEPHRINE 80 MG in SODIUM CHLORIDE 0.9% 492 ML IV PRN ×3 (03:32→19:43)
[2018-12-02 07:31] LABS: HEMATOCRIT. 35.8 % (42.0-52.0); HEMOGLOBIN. 11.5 g/dL (14.0-18.0); MEAN CORPUSCULAR HEMOGLOBIN 29.1 pg (28.0-32.0); MEAN CORPUSCULAR VOLUME 90.3 fL (80.0-94.0); PLATELET 159 x1000/uL (130-400); RED BLOOD CELL COUNT 3.97 mill/uL (4.7-6.1); RED CELL DISTRIBUTION WIDTH 21.4 % (11.6-14.6)
[2018-12-02] MEDS: BLOOD SUGAR DIAGNOSTIC STRIP TEST SCH ×4 (07:50→21:00)
[2018-12-02] MEDS: MEGESTROL ACETATE 400 MG/10 ML UDC PO SCH (08:31)
[2018-12-02] MEDS: BENZONATATE 100MG CAPSULE PO PRN (08:31)
[2018-12-02] MEDS: MIDODRINE HCL 5MG TABLET PO SCH ×3 (08:32→17:52)
[2018-12-02] MEDS: GUAIFENESIN 600MG ER TABLET PO SCH ×2 (08:32→22:10)
[2018-12-02] MEDS: ASPIRIN 81MG EC TABLET PO SCH (08:32)
[2018-12-02] MEDS: INSULIN LISPRO 100 UNITS/ML SUBCUT SCH ×4 (08:33→21:00)
[2018-12-02] MEDS: SILVER SULFADIAZINE 1% CREAM 50GM TOP SCH (08:55)
[2018-12-02] MEDS ORDERED: MAGNESIUM 2 G PREMIX 50 ML IV NR (11:00)
[2018-12-02 12:36] LABS: PLATELET ESTIMATE NORMAL
[2018-12-02] MEDS ORDERED: POTASSIUM CHLORIDE 20MEQ TABLET SR PO NR (12:45)
[2018-12-02] MEDS: FOLIC ACID/VITAMIN B COMP W-C TABLET PO SCH (13:05)
[2018-12-02] MEDS: DEXT 10%/0.45% NACL 1,000 ML IV SCH (13:06)
[2018-12-02] MEDS: IPRATROPIUM/ALBUTEROL 0.5-3(2.5)MG/3ML NEB INH PRN (16:36)
[2018-12-02] MEDS: ENOXAPARIN 60MG/0.6ML SYR SUBCUT SCH (17:53)
[2018-12-03] VITALS (100 sets, daily range): BP systolic 65–134; BP diastolic 44–102
[2018-12-03] MEDS: IPRATROPIUM BROMIDE (0.02%) 0.5MG/2.5ML NEB HHN SCH ×3 (01:58→21:25)
[2018-12-03] MEDS: NOREPINEPHRINE 32 MG in SODIUM CHLORIDE 0.9% 468 ML IV PRN (02:30)
[2018-12-03] MEDS: PHENYLEPHRINE 80 MG in SODIUM CHLORIDE 0.9% 492 ML IV PRN ×3 (04:17→20:08)
[2018-12-03] MEDS: METOCLOPRAMIDE HCL 10MG/2ML VIAL IV SCH ×4 (06:12→23:59)
[2018-12-03 06:17] LABS: CHLORIDE 100 mEq/L (98-107)
[2018-12-03] MEDS: BLOOD SUGAR DIAGNOSTIC STRIP TEST SCH ×4 (08:47→21:33)
[2018-12-03] MEDS: MEGESTROL ACETATE 400 MG/10 ML UDC PO SCH (08:59)
[2018-12-03] MEDS: FOLIC ACID/VITAMIN B COMP W-C TABLET PO SCH (09:00)
[2018-12-03] MEDS: MIDODRINE HCL 5MG TABLET PO SCH ×3 (09:00→17:51)
[2018-12-03] MEDS: SILVER SULFADIAZINE 1% CREAM 50GM TOP SCH (09:00)
[2018-12-03] MEDS: INSULIN LISPRO 100 UNITS/ML SUBCUT SCH ×4 (09:00→21:00)
[2018-12-03] MEDS: ASPIRIN 81MG EC TABLET PO SCH (09:00)
[2018-12-03] MEDS: GUAIFENESIN 600MG ER TABLET PO SCH ×2 (09:00→21:34)
[2018-12-03] MEDS ORDERED: MAGNESIUM 1 G PREMIX 100 ML IV NR (11:00)
[2018-12-03] MEDS ORDERED: POTASSIUM CHLORIDE 20MEQ TABLET SR PO NR (11:00)
[2018-12-03] MEDS: LEVOFLOXACIN 500MG TABLET PO SCH (11:59)
[2018-12-03] MEDS: ONDANSETRON HCL 4MG/2ML INJ IV PRN (13:56)
[2018-12-03] MEDS ORDERED: INSULIN GLARGINE UD 100 UNITS/ML SYR SUBCUT SCH (22:00)
[2018-12-04] VITALS (92 sets, daily range): BP systolic 69–154; BP diastolic 25–138
[2018-12-04] MEDS: IPRATROPIUM BROMIDE (0.02%) 0.5MG/2.5ML NEB HHN SCH ×4 (02:00→20:45)
[2018-12-04] MEDS: PHENYLEPHRINE 80 MG in SODIUM CHLORIDE 0.9% 492 ML IV PRN ×3 (04:08→19:00)
[2018-12-04] MEDS: METOCLOPRAMIDE HCL 10MG/2ML VIAL IV SCH ×3 (05:11→17:27)
[2018-12-04 06:02] LABS: HEMATOCRIT. 36.4 % (42.0-52.0); HEMOGLOBIN. 11.6 g/dL (14.0-18.0); MEAN CORPUSCULAR HEMOGLOBIN 28.7 pg (28.0-32.0); MEAN CORPUSCULAR VOLUME 90.2 fL (80.0-94.0); MEAN PLATELET VOLUME 8.5 fl (7.4-10.4); PLATELET 147 x1000/uL (130-400); RED BLOOD CELL COUNT 4.04 mill/uL (4.7-6.1); RED CELL DISTRIBUTION WIDTH 21.2 % (11.6-14.6)
[2018-12-04 06:25] LABS: CHLORIDE 104 mEq/L (98-107)
[2018-12-04] MEDS: DEXTROSE 50% WATER 50ML SYRINGE IV PRN (06:57)
[2018-12-04 07:31] LABS: NUCLEATED RED BLOOD CELLS 3 /100 WBC; PLATELET ESTIMATE NORMAL
[2018-12-04] MEDS: INSULIN LISPRO 100 UNITS/ML SUBCUT SCH ×4 (08:00→21:00)
[2018-12-04] MEDS: BLOOD SUGAR DIAGNOSTIC STRIP TEST SCH ×4 (08:00→21:40)
[2018-12-04] MEDS: FOLIC ACID/VITAMIN B COMP W-C TABLET PO SCH (08:01)
[2018-12-04] MEDS: MIDODRINE HCL 5MG TABLET PO SCH ×3 (08:01→17:29)
[2018-12-04] MEDS: MEGESTROL ACETATE 400 MG/10 ML UDC PO SCH (08:01)
[2018-12-04] MEDS: GUAIFENESIN 600MG ER TABLET PO SCH ×2 (08:01→21:00)
[2018-12-04 08:41] LABS: INR 1.5; PROTHROMBIN TIME 14.9 sec (9.6-11.0)
[2018-12-04] MEDS: SODIUM CHLORIDE 23.4% 154 MEQ in DEXT 10% WATER 1,000 ML IV SCH (08:48)
[2018-12-04] MEDS: SILVER SULFADIAZINE 1% CREAM 50GM TOP SCH (08:50)
[2018-12-04] MEDS: ASPIRIN 81MG EC TABLET PO SCH (09:55)
[2018-12-04] MEDS ORDERED: LIDOCAINE HCL 1% 20ML VIAL (Pyxis) INJ ONE (12:42)
[2018-12-04] MEDS ORDERED: ASPIRIN/SOD BICARB/CITRIC ACID 324MG TAB EFF ONE (12:42)
[2018-12-04] MEDS ORDERED: IODIXANOL 320MG/ML 200ML BOTTLE ONE (12:42)
[2018-12-04] MEDS ORDERED: IOHEXOL-300 100 ML BOTTLE ONE (12:42)
[2018-12-04] MEDS ORDERED: FENTANYL CITRATE/PF 50MCG/ML 2ML VIAL ONE (13:17)
[2018-12-04] MEDS ORDERED: MIDAZOLAM HCL 2 MG/2 ML VIAL ONE (13:17)
[2018-12-04] MEDS ORDERED: ACETAMINOPHEN 325MG TABLET PO PRN (14:00)
[2018-12-04] MEDS ORDERED: ATROPINE SULFATE 1MG/10ML SYR IV PRN (14:00)
[2018-12-04] MEDS ORDERED: VANCOMYCIN 1,750 MG in DEXT 5% WATER 500 ML IV NR (14:00)
[2018-12-04 17:33] LABS: INR 1.7; PROTHROMBIN TIME 17.1 sec (9.6-11.0)
[2018-12-05] VITALS (85 sets, daily range): BP systolic 52–142; BP diastolic 42–91
[2018-12-05] MEDS: METOCLOPRAMIDE HCL 10MG/2ML VIAL IV SCH ×4 (00:46→18:10)
[2018-12-05] MEDS: IPRATROPIUM BROMIDE (0.02%) 0.5MG/2.5ML NEB HHN SCH ×4 (02:01→20:04)
[2018-12-05 04:20] LABS: HEMOGLOBIN. 12.3 g/dL (14.0-18.0); MEAN CORPUSCULAR HEMOGLOBIN 29.2 pg (28.0-32.0); MEAN CORPUSCULAR VOLUME 92.3 fL (80.0-94.0); MEAN PLATELET VOLUME 8.5 fl (7.4-10.4); PLATELET 150 x1000/uL (130-400); RED BLOOD CELL COUNT 4.23 mill/uL (4.7-6.1)
[2018-12-05 04:29] LABS: CHLORIDE 98 mEq/L (98-107)
[2018-12-05 04:56] LABS: NUCLEATED RED BLOOD CELLS 2 /100 WBC
[2018-12-05 04:57] LABS: PLATELET ESTIMATE NORMAL
[2018-12-05] MEDS: SODIUM CHLORIDE 23.4% 154 MEQ in DEXT 10% WATER 1,000 ML IV SCH (06:30)
[2018-12-05] MEDS: PHENYLEPHRINE 80 MG in SODIUM CHLORIDE 0.9% 492 ML IV PRN ×3 (07:00→23:40)
[2018-12-05] MEDS ORDERED: HEPARIN SODIUM 1,000 UNIT/1ML VIAL IV ONE (07:48)
[2018-12-05] MEDS: BLOOD SUGAR DIAGNOSTIC STRIP TEST SCH ×4 (07:50→21:00)
[2018-12-05] MEDS ORDERED: LIDOCAINE HCL/PF 1% 2ML VIAL ONE (08:54)
[2018-12-05] MEDS: ASPIRIN 81MG EC TABLET PO SCH (09:00)
[2018-12-05] MEDS: FOLIC ACID/VITAMIN B COMP W-C TABLET PO SCH (09:00)
[2018-12-05] MEDS: MIDODRINE HCL 5MG TABLET PO SCH ×3 (09:00→16:35)
[2018-12-05] MEDS: DOPAMINE 800MG PREMIX (DOUBLE) 250 ML IV SCH ×2 (09:00→13:00)
[2018-12-05] MEDS: MEGESTROL ACETATE 400 MG/10 ML UDC PO SCH (09:00)
[2018-12-05] MEDS: GUAIFENESIN 600MG ER TABLET PO SCH ×2 (09:00→21:00)
[2018-12-05 09:13] LABS: BG BASE EXCESS -20.9 mmol/L (-2.0-2.0); BG CARBOXYHEMOGLOBIN 0.9 % (0.5-1.5); BG DEOXYHEMOGLOBIN 1.3 % (0.0-5.0); BG HCO3 ACT 5.5 mmol/L (22.0-26.0); BG METHEMOGLOBIN 0.3 % (0.0-1.5); BG OXYGEN SATURATION 98.7 % (92.0-98.5); BG OXYHEMOGLOBIN 97.5 % (94.0-97.0); BG PCO2 15.8 mmHg (35.0-45.0); BG PH 7.159 (7.350-7.450); BG PO2 157.3 mmHg (75.0-100.0); BG SAMPLE SITE RIGHT RADIAL; BG TOTAL HEMOGLOBIN 13.4 g/dL (12.0-18.0)
[2018-12-05] MEDS: INSULIN LISPRO 100 UNITS/ML SUBCUT SCH ×4 (09:20→22:08)
[2018-12-05] MEDS: SILVER SULFADIAZINE 1% CREAM 50GM TOP SCH (09:25)
[2018-12-05] MEDS ORDERED: SODIUM BICARBONATE 8.4% 1 MEQ/ML 50ML SYR IV NR ×4 (09:30→14:23)
[2018-12-05] MEDS ORDERED: SODIUM BICARBONATE 8.4% 1 MEQ/ML 50ML SYR IV ONE (09:34)
[2018-12-05] MEDS: ETOMIDATE 2MG/ML 10ML VIAL IV NR ×2 (09:38→10:47)
[2018-12-05] MEDS ORDERED: SUCCINYLCHOLINE CHLORIDE 200MG/10ML IV NR (09:38)
[2018-12-05] MEDS ORDERED: PIPERACILLIN/TAZ 2.25G PREMIX 50 ML IV SCH (10:00)
[2018-12-05] MEDS ORDERED: ETOMIDATE 2MG/ML 10ML VIAL IV ONE (10:03)
[2018-12-05] MEDS ORDERED: SUCCINYLCHOLINE CHLORIDE 200MG/10ML IV ONE (10:03)
[2018-12-05] MEDS ORDERED: VECURONIUM BROMIDE 10 MG/VIAL IV ONE (10:03)
[2018-12-05 10:50] LABS: BG BASE EXCESS -18.7 mmol/L (-2.0-2.0); BG DEOXYHEMOGLOBIN 0.3 % (0.0-5.0); BG HCO3 ACT 8.6 mmol/L (22.0-26.0); BG METHEMOGLOBIN 0.3 % (0.0-1.5); BG OXYGEN SATURATION 99.7 % (92.0-98.5); BG OXYHEMOGLOBIN 98.4 % (94.0-97.0); BG PCO2 25.7 mmHg (35.0-45.0); BG PH 7.144 (7.350-7.450); BG PO2 468.9 mmHg (75.0-100.0); BG SAMPLE SITE RIGHT RADIAL; BG TIDAL VOLUME(mL) 550 mL; BG TOTAL HEMOGLOBIN 13.9 g/dL (12.0-18.0); BG VENT MODE VENT - A/C; BG VENT RATE 18 set
[2018-12-05] MEDS ORDERED: IODIXANOL 320MG/ML 100 ML BOTTLE IV ONE (11:31)
[2018-12-05] MEDS ORDERED: LIDOCAINE HCL 1% 20ML VIAL (Pyxis) INJ ONE (11:31)
[2018-12-05] MEDS: PROPOFOL 10MG/ML 100ML 100 ML IV PRN (11:45)
[2018-12-05] MEDS ORDERED: ATROPINE SULFATE 1MG/10ML SYR IV PRN (12:45)
[2018-12-05] MEDS: PIPERACILLIN/TAZ 2.25G PREMIX 50 ML IV SCH (13:59)
[2018-12-05] MEDS ORDERED: HEPARIN 100 UNITS/1 ML VIAL IVF PRN (14:00)
[2018-12-05 14:10] LABS: BG BASE EXCESS -13.6 mmol/L (-2.0-2.0); BG CARBOXYHEMOGLOBIN 0.6 % (0.5-1.5); BG DEOXYHEMOGLOBIN 0.6 % (0.0-5.0); BG HCO3 ACT 11.9 mmol/L (22.0-26.0); BG METHEMOGLOBIN 0.3 % (0.0-1.5); BG OXYGEN SATURATION 99.4 % (92.0-98.5); BG OXYHEMOGLOBIN 98.5 % (94.0-97.0); BG PCO2 27.3 mmHg (35.0-45.0); BG PH 7.256 (7.350-7.450); BG PO2 226.7 mmHg (75.0-100.0); BG SAMPLE SITE RIGHT RADIAL; BG TIDAL VOLUME(mL) 500 mL; BG TOTAL HEMOGLOBIN 13.6 g/dL (12.0-18.0); BG VENT MODE VENT - A/C; BG VENT RATE 26 set
[2018-12-05] MEDS: DEXT 5%/0.9% NACL 1,000 ML IV SCH (16:50)
[2018-12-05] MEDS: NOREPINEPHRINE 32 MG in SODIUM CHLORIDE 0.9% 468 ML IV PRN (18:00)
[2018-12-05] MEDS: ENOXAPARIN 30MG/0.3ML SYR SUBCUT SCH (22:08)
[2018-12-06] VITALS (81 sets, daily range): BP systolic 95–145; BP diastolic 36–79
[2018-12-06] MEDS: METOCLOPRAMIDE HCL 10MG/2ML VIAL IV SCH ×4 (00:09→17:44)
[2018-12-06] MEDS: PROPOFOL 10MG/ML 100ML 100 ML IV PRN (01:23)
[2018-12-06 05:38] LABS: HEMATOCRIT. 39.6 % (42.0-52.0); HEMOGLOBIN. 12.7 g/dL (14.0-18.0); MEAN CORPUSCULAR HEMOGLOBIN 28.8 pg (28.0-32.0); MEAN CORPUSCULAR VOLUME 89.7 fL (80.0-94.0); MEAN PLATELET VOLUME 8.8 fl (7.4-10.4); PLATELET 134 x1000/uL (130-400); RED BLOOD CELL COUNT 4.42 mill/uL (4.7-6.1); RED CELL DISTRIBUTION WIDTH 20.6 % (11.6-14.6)
[2018-12-06] MEDS: BLOOD SUGAR DIAGNOSTIC STRIP TEST SCH ×3 (07:50→17:39)
[2018-12-06] MEDS: IPRATROPIUM BROMIDE (0.02%) 0.5MG/2.5ML NEB HHN SCH ×4 (08:47→19:57)
[2018-12-06] MEDS: GUAIFENESIN 600MG ER TABLET PO SCH ×2 (09:00→23:09)
[2018-12-06] MEDS: MEGESTROL ACETATE 400 MG/10 ML UDC PO SCH (09:00)
[2018-12-06] MEDS: SILVER SULFADIAZINE 1% CREAM 50GM TOP SCH (09:02)
[2018-12-06 09:09] LABS: BG BASE EXCESS -2.8 mmol/L (-2.0-2.0); BG DEOXYHEMOGLOBIN 0.6 % (0.0-5.0); BG FRACTION INSPIRED OXYGEN 50; BG HCO3 ACT 18.2 mmol/L (22.0-26.0); BG METHEMOGLOBIN 0.3 % (0.0-1.5); BG OXYGEN SATURATION 99.4 % (92.0-98.5); BG OXYHEMOGLOBIN 98.1 % (94.0-97.0); BG PCO2 22.9 mmHg (35.0-45.0); BG PH 7.519 (7.350-7.450); BG SAMPLE SITE RIGHT RADIAL; BG TIDAL VOLUME(mL) 500 mL; BG TOTAL HEMOGLOBIN 13.1 g/dL (12.0-18.0); BG VENT MODE VENT - A/C; BG VENT RATE 26 set
[2018-12-06] MEDS: PIPERACILLIN/TAZ 2.25G PREMIX 50 ML IV SCH ×2 (09:11→23:09)
[2018-12-06] MEDS: MIDODRINE HCL 5MG TABLET PO SCH ×3 (09:12→17:45)
[2018-12-06] MEDS: FOLIC ACID/VITAMIN B COMP W-C TABLET PO SCH (09:12)
[2018-12-06] MEDS: ASPIRIN 81MG EC TABLET PO SCH (09:12)
[2018-12-06] MEDS: INSULIN LISPRO 100 UNITS/ML SUBCUT SCH ×3 (09:13→17:39)
[2018-12-06 10:02] LABS: NUCLEATED RED BLOOD CELLS 3 /100 WBC; PLATELET ESTIMATE NORMAL
[2018-12-06] MEDS: PHENYLEPHRINE 80 MG in SODIUM CHLORIDE 0.9% 492 ML IV PRN ×2 (10:35→23:04)
[2018-12-06] MEDS ORDERED: INSULIN GLARGINE UD 100 UNITS/ML SYR SUBCUT SCH (11:00)
[2018-12-06] MEDS ORDERED: KCL 20MEQ/100ML PREMIX 100 ML IV NR (12:00)
[2018-12-06] MEDS ORDERED: MAGNESIUM 2 G PREMIX 50 ML IV NR (12:00)
[2018-12-06] MEDS ORDERED: PROPOFOL 10MG/ML 100ML 100 ML IV PRN (14:00)
[2018-12-06] MEDS: DEXT 5%/0.9% NACL 1,000 ML IV SCH (17:48)
[2018-12-06] MEDS ORDERED: PROPOFOL 10MG/ML 100ML 100 ML IV SCH ×2 (22:45→23:00)
[2018-12-06] MEDS: NOREPINEPHRINE 32 MG in SODIUM CHLORIDE 0.9% 468 ML IV PRN (23:04)
[2018-12-06] MEDS: ENOXAPARIN 30MG/0.3ML SYR SUBCUT SCH (23:09)
[2018-12-07] VITALS (29 sets, daily range): BP systolic 102–176; BP diastolic 36–75
[2018-12-07] MEDS: BLOOD SUGAR DIAGNOSTIC STRIP TEST SCH ×4 (00:36→18:28)
[2018-12-07] MEDS: INSULIN LISPRO 100 UNITS/ML SUBCUT SCH ×4 (00:41→18:00)
[2018-12-07] MEDS: METOCLOPRAMIDE HCL 10MG/2ML VIAL IV SCH ×4 (00:42→16:53)
[2018-12-07] MEDS: IPRATROPIUM BROMIDE (0.02%) 0.5MG/2.5ML NEB HHN SCH ×4 (01:55→20:44)
[2018-12-07 05:27] LABS: BASOPHILS % 0.3 % (0.0-2.0); EOSINOPHILS % 0.8 % (0.0-5.0); HEMATOCRIT. 37.8 % (42.0-52.0); HEMOGLOBIN. 12.2 g/dL (14.0-18.0); LYMPHOCYTES % 7.2 % (20.0-50.0); MEAN CORPUSCULAR HEMOGLOBIN 28.9 pg (28.0-32.0); MEAN CORPUSCULAR VOLUME 89.3 fL (80.0-94.0); MEAN PLATELET VOLUME 8.6 fl (7.4-10.4); MONOCYTES % 7.7 % (2.0-8.0); PLATELET 82 x1000/uL (130-400); RED BLOOD CELL COUNT 4.23 mill/uL (4.7-6.1); RED CELL DISTRIBUTION WIDTH 21.2 % (11.6-14.6)
[2018-12-07] MEDS ORDERED: PROPOFOL 10MG/ML 100ML 100 ML IV SCH (05:30)
[2018-12-07] MEDS: PROPOFOL 10MG/ML 100ML 100 ML IV SCH ×2 (05:35→20:13)
[2018-12-07] MEDS: PHENYLEPHRINE 80 MG in SODIUM CHLORIDE 0.9% 492 ML IV PRN ×3 (05:36→20:14)
[2018-12-07 08:30] LABS: BG BASE EXCESS -2.5 mmol/L (-2.0-2.0); BG CARBOXYHEMOGLOBIN 0.6 % (0.5-1.5); BG FRACTION INSPIRED OXYGEN 40; BG HCO3 ACT 18.1 mmol/L (22.0-26.0); BG OXYHEMOGLOBIN 97.4 % (94.0-97.0); BG PCO2 21.7 mmHg (35.0-45.0); BG PH 7.538 (7.350-7.450); BG PO2 166.4 mmHg (75.0-100.0); BG SAMPLE SITE RIGHT RADIAL; BG TIDAL VOLUME(mL) 500 mL; BG TOTAL HEMOGLOBIN 13.1 g/dL (12.0-18.0); BG VENT MODE VENT - A/C; BG VENT RATE 26 set
[2018-12-07] MEDS: FOLIC ACID/VITAMIN B COMP W-C TABLET PO SCH (09:25)
[2018-12-07] MEDS: MIDODRINE HCL 5MG TABLET PO SCH ×3 (09:25→16:54)
[2018-12-07] MEDS: MEGESTROL ACETATE 400 MG/10 ML UDC PO SCH (09:25)
[2018-12-07] MEDS: ASPIRIN 81MG EC TABLET PO SCH (09:26)
[2018-12-07] MEDS: PIPERACILLIN/TAZ 2.25G PREMIX 50 ML IV SCH ×2 (09:26→20:37)
[2018-12-07] MEDS: GUAIFENESIN 600MG ER TABLET PO SCH ×2 (09:26→20:37)
[2018-12-07] MEDS: DEXT 5%/0.9% NACL 1,000 ML IV SCH (20:12)
[2018-12-07] MEDS: ENOXAPARIN 30MG/0.3ML SYR SUBCUT SCH (20:38)
[2018-12-07] MEDS: NOREPINEPHRINE 32 MG in SODIUM CHLORIDE 0.9% 468 ML IV PRN (20:41)
[2018-12-08] VITALS (41 sets, daily range): BP systolic 96–136; BP diastolic 36–56
[2018-12-08] MEDS: METOCLOPRAMIDE HCL 10MG/2ML VIAL IV SCH ×5 (01:00→17:45)
[2018-12-08] MEDS: INSULIN LISPRO 100 UNITS/ML SUBCUT SCH ×5 (01:10→23:27)
[2018-12-08] MEDS: IPRATROPIUM BROMIDE (0.02%) 0.5MG/2.5ML NEB HHN SCH ×2 (01:46→08:25)
[2018-12-08] MEDS: PHENYLEPHRINE 80 MG in SODIUM CHLORIDE 0.9% 492 ML IV PRN ×3 (04:44→21:54)
[2018-12-08] MEDS ORDERED: PROPOFOL 10MG/ML 100ML 100 ML IV SCH (04:45)
[2018-12-08 05:46] LABS: BASOPHILS % 0.4 % (0.0-2.0); EOSINOPHILS % 2.3 % (0.0-5.0); HEMATOCRIT. 39.1 % (42.0-52.0); HEMOGLOBIN. 12.6 g/dL (14.0-18.0); LYMPHOCYTES % 9.3 % (20.0-50.0); MEAN CORPUSCULAR HEMOGLOBIN 28.8 pg (28.0-32.0); MEAN CORPUSCULAR VOLUME 89.3 fL (80.0-94.0); MEAN PLATELET VOLUME 8.8 fl (7.4-10.4); PLATELET 54 x1000/uL (130-400); RED BLOOD CELL COUNT 4.38 mill/uL (4.7-6.1); RED CELL DISTRIBUTION WIDTH 21.3 % (11.6-14.6)
[2018-12-08] MEDS: BLOOD SUGAR DIAGNOSTIC STRIP TEST SCH ×5 (05:55→23:23)
[2018-12-08 08:42] LABS: BG BASE EXCESS -2.7 mmol/L (-2.0-2.0); BG CARBOXYHEMOGLOBIN 2.2 % (0.5-1.5); BG DEOXYHEMOGLOBIN 0.9 % (0.0-5.0); BG FRACTION INSPIRED OXYGEN 35; BG HCO3 ACT 18.9 mmol/L (22.0-26.0); BG METHEMOGLOBIN 0.5 % (0.0-1.5); BG OXYGEN SATURATION 99.1 % (92.0-98.5); BG OXYHEMOGLOBIN 96.4 % (94.0-97.0); BG PCO2 25.3 mmHg (35.0-45.0); BG PH 7.492 (7.350-7.450); BG PO2 136.2 mmHg (75.0-100.0); BG SAMPLE SITE RIGHT RADIAL; BG TIDAL VOLUME(mL) 500 mL; BG TOTAL HEMOGLOBIN 13.5 g/dL (12.0-18.0); BG VENT MODE VENT - A/C; BG VENT RATE 20 set
[2018-12-08] MEDS: MEGESTROL ACETATE 400 MG/10 ML UDC PO SCH (09:09)
[2018-12-08] MEDS: GUAIFENESIN 600MG ER TABLET PO SCH ×2 (09:10→21:00)
[2018-12-08] MEDS: FOLIC ACID/VITAMIN B COMP W-C TABLET PO SCH (09:10)
[2018-12-08] MEDS: ASPIRIN 81MG EC TABLET PO SCH (09:10)
[2018-12-08] MEDS: MIDODRINE HCL 5MG TABLET PO SCH ×3 (09:10→17:46)
[2018-12-08] MEDS: PIPERACILLIN/TAZ 2.25G PREMIX 50 ML IV SCH (09:11)
[2018-12-08] MEDS ORDERED: PROPOFOL 10MG/ML 100ML 100 ML IV PRN (10:00)
[2018-12-08] MEDS: IPRATROPIUM/ALBUTEROL 0.5-3(2.5)MG/3ML NEB HHN SCH ×3 (12:30→20:14)
[2018-12-08] MEDS ORDERED: KCL 20MEQ/100ML PREMIX 100 ML IV SCH (13:00)
[2018-12-08] MEDS ORDERED: VANCOMYCIN 750 MG PREMIX 150 ML IV SCH (14:00)
[2018-12-08] MEDS: ACETYLCYSTEINE 100MG/ML 10% VIAL 4ML INH SCH ×2 (15:02→16:36)
[2018-12-08 15:15] LABS: INR 1.3; PARTIAL THROMBOPLASTIN TIME 46.8 sec (23.4-31.0); PROTHROMBIN TIME 13.7 sec (9.6-11.0)
[2018-12-08 16:31] LABS: D-DIMER 13.14 mg/L FEU (<0.50)
[2018-12-08] MEDS: CEFEPIME 1,000 MG in DEXTROSE 5% WATER 50 ML IV SCH (21:29)
[2018-12-08] MEDS: DEXT 5%/0.9% NACL 1,000 ML IV SCH (21:53)
[2018-12-09] VITALS (86 sets, daily range): BP systolic 0–155; BP diastolic 0–87
[2018-12-09] MEDS: ACETYLCYSTEINE 100MG/ML 10% VIAL 4ML INH SCH ×3 (00:43→20:46)
[2018-12-09] MEDS: IPRATROPIUM/ALBUTEROL 0.5-3(2.5)MG/3ML NEB HHN SCH ×5 (00:43→20:46)
[2018-12-09 05:18] LABS: HEMATOCRIT. 37.7 % (42.0-52.0); MEAN CORPUSCULAR HEMOGLOBIN 29.3 pg (28.0-32.0); MEAN CORPUSCULAR VOLUME 91.9 fL (80.0-94.0); MEAN PLATELET VOLUME 9.6 fl (7.4-10.4); RED CELL DISTRIBUTION WIDTH 22.2 % (11.6-14.6)
[2018-12-09 05:31] LABS: PLATELET 44 x1000/uL (130-400)
[2018-12-09 05:37] LABS: CHLORIDE 104 mEq/L (98-107)
[2018-12-09 05:43] LABS: PHOSPHORUS 6.1 mg/dL (2.5-4.9)
[2018-12-09] MEDS: BLOOD SUGAR DIAGNOSTIC STRIP TEST SCH ×3 (06:05→18:00)
[2018-12-09] MEDS: PHENYLEPHRINE 80 MG in SODIUM CHLORIDE 0.9% 492 ML IV PRN ×3 (06:10→20:26)
[2018-12-09] MEDS: METOCLOPRAMIDE HCL 10MG/2ML VIAL IV SCH ×3 (06:12→18:00)
[2018-12-09] MEDS: INSULIN LISPRO 100 UNITS/ML SUBCUT SCH ×3 (06:12→18:00)
[2018-12-09 06:40] LABS: PLATELET ESTIMATE DECREASED
[2018-12-09 07:19] LABS: BG BASE EXCESS -6.2 mmol/L (-2.0-2.0); BG CARBOXYHEMOGLOBIN 1.7 % (0.5-1.5); BG DEOXYHEMOGLOBIN 1.8 % (0.0-5.0); BG HCO3 ACT 16.7 mmol/L (22.0-26.0); BG METHEMOGLOBIN 0.1 % (0.0-1.5); BG OXYGEN SATURATION 98.2 % (92.0-98.5); BG OXYHEMOGLOBIN 96.4 % (94.0-97.0); BG PCO2 26.2 mmHg (35.0-45.0); BG PH 7.421 (7.350-7.450); BG PO2 108.7 mmHg (75.0-100.0); BG SAMPLE SITE RIGHT RADIAL; BG TIDAL VOLUME(mL) 500 mL; BG TOTAL HEMOGLOBIN 13.1 g/dL (12.0-18.0); BG VENT MODE VENT - A/C; BG VENT RATE 20 set
[2018-12-09] MEDS: MIDODRINE HCL 5MG TABLET PO SCH ×3 (09:00→17:00)
[2018-12-09] MEDS: FOLIC ACID/VITAMIN B COMP W-C TABLET PO SCH (09:00)
[2018-12-09] MEDS: GUAIFENESIN 600MG ER TABLET PO SCH ×2 (09:00→23:12)
[2018-12-09] MEDS: MEGESTROL ACETATE 400 MG/10 ML UDC PO SCH (09:00)
[2018-12-09] MEDS: PANTOPRAZOLE SODIUM 40 MG/VIAL IV SCH (09:43)
[2018-12-09] MEDS ORDERED: KCL 20MEQ/100ML PREMIX 100 ML IV NR (11:00)
[2018-12-09] MEDS ORDERED: ASPIRIN/SOD BICARB/CITRIC ACID 324MG TAB EFF PO NR (13:00)
[2018-12-09] MEDS ORDERED: HEPARIN SODIUM 1,000 UNIT/1ML VIAL IV ONE ×2 (13:22→15:00)
[2018-12-09] MEDS ORDERED: LIDOCAINE HCL 1% 20ML VIAL (Pyxis) INJ ONE ×2 (14:15→14:59)
[2018-12-09] MEDS ORDERED: IOHEXOL-300 100 ML BOTTLE ONE (14:15)
[2018-12-09] MEDS ORDERED: IODIXANOL 320MG/ML 200ML BOTTLE ONE (14:15)
[2018-12-09] MEDS ORDERED: MIDAZOLAM HCL 2 MG/2 ML VIAL ONE (15:16)
[2018-12-09] MEDS ORDERED: FENTANYL CITRATE/PF 50MCG/ML 2ML VIAL ONE (15:17)
[2018-12-09] MEDS: SILVER SULFADIAZINE 1% CREAM 25GM TOP SCH (16:00)
[2018-12-09] MEDS ORDERED: IODIXANOL 320MG/ML 100 ML BOTTLE IV ONE (16:35)
[2018-12-09] MEDS: DEXT 5%/0.9% NACL 1,000 ML IV SCH (16:45)
[2018-12-09] MEDS ORDERED: CLOPIDOGREL 75MG TABLET ONE (16:49)
[2018-12-09] MEDS ORDERED: ATROPINE SULFATE 1MG/10ML SYR IV PRN (17:00)
[2018-12-09] MEDS ORDERED: ACETAMINOPHEN 325MG TABLET PO PRN (17:00)
[2018-12-09] MEDS ORDERED: CLOPIDOGREL 75MG TABLET PO ONE (17:00)
[2018-12-09] MEDS ORDERED: HEPARIN 25,000 UNITS PREMIX 500 ML IV SCH (17:15)
[2018-12-09 17:18] LABS: BG BASE EXCESS -5.3 mmol/L (-2.0-2.0); BG CARBOXYHEMOGLOBIN 1.1 % (0.5-1.5); BG DEOXYHEMOGLOBIN 0.4 % (0.0-5.0); BG HCO3 ACT 17.2 mmol/L (22.0-26.0); BG METHEMOGLOBIN 0.2 % (0.0-1.5); BG OXYGEN SATURATION 99.6 % (92.0-98.5); BG OXYHEMOGLOBIN 98.3 % (94.0-97.0); BG PCO2 25.3 mmHg (35.0-45.0); BG PH 7.451 (7.350-7.450); BG SAMPLE SITE A-LINE; BG TOTAL HEMOGLOBIN 11.9 g/dL (12.0-18.0); BG VENT MODE VENT - A/C
[2018-12-09 19:47] LABS: BG BASE EXCESS -9.7 mmol/L (-2.0-2.0); BG CARBOXYHEMOGLOBIN 1.7 % (0.5-1.5); BG DEOXYHEMOGLOBIN 26.3 % (0.0-5.0); BG FRACTION INSPIRED OXYGEN 100; BG HCO3 ACT 15.8 mmol/L (22.0-26.0); BG METHEMOGLOBIN 0.8 % (0.0-1.5); BG OXYHEMOGLOBIN 71.2 % (94.0-97.0); BG PCO2 33.4 mmHg (35.0-45.0); BG PH 7.293 (7.350-7.450); BG PO2 44.3 mmHg (75.0-100.0); BG SAMPLE SITE A-LINE; BG TIDAL VOLUME(mL) 500 mL; BG TOTAL HEMOGLOBIN 11.3 g/dL (12.0-18.0); BG VENT MODE VENT - A/C; BG VENT RATE 18 set
[2018-12-09] MEDS ORDERED: SODIUM BICARBONATE 8.4% 1 MEQ/ML 50ML SYR IV ONE (20:15)
[2018-12-09] MEDS: NOREPINEPHRINE 32 MG in SODIUM CHLORIDE 0.9% 468 ML IV PRN (20:26)
[2018-12-09] MEDS: CEFEPIME 1,000 MG in DEXTROSE 5% WATER 50 ML IV SCH (20:39)
[2018-12-09] MEDS: PROPOFOL 10MG/ML 100ML 100 ML IV PRN (22:57)
[2018-12-10] VITALS (83 sets, daily range): BP systolic 4–134; BP diastolic -2–73
[2018-12-10] MEDS: ACETYLCYSTEINE 100MG/ML 10% VIAL 4ML INH SCH ×3 (00:35→16:41)
[2018-12-10] MEDS: IPRATROPIUM/ALBUTEROL 0.5-3(2.5)MG/3ML NEB HHN SCH ×5 (00:35→20:33)
[2018-12-10] MEDS: PROPOFOL 10MG/ML 100ML 100 ML IV PRN ×2 (01:52→10:26)
[2018-12-10] MEDS: METOCLOPRAMIDE HCL 10MG/2ML VIAL IV SCH ×4 (01:53→17:53)
[2018-12-10] MEDS: PHENYLEPHRINE 80 MG in SODIUM CHLORIDE 0.9% 492 ML IV PRN ×3 (03:12→18:55)
[2018-12-10] MEDS: BLOOD SUGAR DIAGNOSTIC STRIP TEST SCH ×4 (06:37→17:44)
[2018-12-10] MEDS: INSULIN LISPRO 100 UNITS/ML SUBCUT SCH ×4 (06:43→17:54)
[2018-12-10 06:53] LABS: HEMATOCRIT. 29.8 % (42.0-52.0); HEMOGLOBIN. 9.6 g/dL (14.0-18.0); MEAN CORPUSCULAR HEMOGLOBIN 29.9 pg (28.0-32.0); MEAN CORPUSCULAR VOLUME 93.1 fL (80.0-94.0); RED CELL DISTRIBUTION WIDTH 23.5 % (11.6-14.6)
[2018-12-10 07:16] LABS: NUCLEATED RED BLOOD CELLS 2 /100 WBC
[2018-12-10 07:17] LABS: PLATELET ESTIMATE NORMAL
[2018-12-10 07:18] LABS: PLATELET 132 x1000/uL (130-400)
[2018-12-10 08:08] LABS: BG BASE EXCESS -17.6 mmol/L (-2.0-2.0); BG CARBOXYHEMOGLOBIN 1.7 % (0.5-1.5); BG DEOXYHEMOGLOBIN 0.3 % (0.0-5.0); BG FRACTION INSPIRED OXYGEN 100; BG HCO3 ACT 11.1 mmol/L (22.0-26.0); BG OXYGEN SATURATION 99.7 % (92.0-98.5); BG PCO2 36.7 mmHg (35.0-45.0); BG PH 7.097 (7.350-7.450); BG PO2 342.7 mmHg (75.0-100.0); BG SAMPLE SITE A-LINE; BG TIDAL VOLUME(mL) 500 mL; BG TOTAL HEMOGLOBIN 10.5 g/dL (12.0-18.0); BG VENT MODE VENT - A/C; BG VENT RATE 24 set
[2018-12-10] MEDS ORDERED: SODIUM BICARBONATE 8.4% 1 MEQ/ML 50ML SYR IV SCH ×2 (08:15→09:45)
[2018-12-10] MEDS: GUAIFENESIN 600MG ER TABLET PO SCH ×2 (08:18→21:28)
[2018-12-10] MEDS: MEGESTROL ACETATE 400 MG/10 ML UDC PO SCH (08:19)
[2018-12-10] MEDS: SILVER SULFADIAZINE 1% CREAM 25GM TOP SCH (09:00)
[2018-12-10] MEDS: FOLIC ACID/VITAMIN B COMP W-C TABLET PO SCH (09:00)
[2018-12-10 09:18] LABS: CHLORIDE 103 mEq/L (98-107)
[2018-12-10 09:39] LABS: BG DEOXYHEMOGLOBIN 5.2 % (0.0-5.0); BG FRACTION INSPIRED OXYGEN 60; BG HCO3 ACT 11.8 mmol/L (22.0-26.0); BG METHEMOGLOBIN 2.5 % (0.0-1.5); BG OXYGEN SATURATION 94.6 % (92.0-98.5); BG OXYHEMOGLOBIN 90.3 % (94.0-97.0); BG PH 7.146 (7.350-7.450); BG PO2 89.3 mmHg (75.0-100.0); BG SAMPLE SITE CORD; BG TIDAL VOLUME(mL) 500 mL; BG TOTAL HEMOGLOBIN 9.7 g/dL (12.0-18.0); BG VENT MODE VENT - A/C; BG VENT RATE 30 set
[2018-12-10] MEDS ORDERED: DEXT 5%/0.9% NACL 500 ML IV SCH (09:45)
[2018-12-10] MEDS ORDERED: IODIXANOL 320MG/ML 200ML BOTTLE ONE (10:09)
[2018-12-10] MEDS ORDERED: LIDOCAINE HCL 1% 20ML VIAL (Pyxis) INJ ONE (10:09)
[2018-12-10] MEDS: VASOPRESSIN 10 UNIT in SODIUM CHLORIDE 0.9% 99.5 ML IV PRN ×3 (10:22→14:14)
[2018-12-10] MEDS: ASPIRIN 325MG TABLET PO SCH (10:23)
[2018-12-10] MEDS: MIDODRINE HCL 5MG TABLET PO SCH ×3 (10:23→17:54)
[2018-12-10] MEDS: PANTOPRAZOLE SODIUM 40 MG/VIAL IV SCH (10:24)
[2018-12-10] MEDS: CLOPIDOGREL 75MG TABLET PO SCH (10:24)
[2018-12-10] MEDS: NOREPINEPHRINE 32 MG in SODIUM CHLORIDE 0.9% 468 ML IV PRN (10:27)
[2018-12-10] MEDS ORDERED: PROPOFOL 10MG/ML 100ML 100 ML IV PRN (11:00)
[2018-12-10] MEDS ORDERED: SODIUM BICARBONATE 8.4% 1 MEQ/ML 50ML SYR IV NR ×2 (11:15→14:45)
[2018-12-10] MEDS: SODIUM BICARBONATE 150 MEQ in DEXTROSE 5% WATER 1,000 ML IV SCH ×3 (12:15)
[2018-12-10] MEDS: MEROPENEM 1,000 MG in SODIUM CHLORIDE 0.9% 100 ML IV SCH (13:59)
[2018-12-10] MEDS: DOPAMINE 800MG PREMIX (DOUBLE) 250 ML IV PRN (14:00)
[2018-12-10 14:34] LABS: BG BASE EXCESS -15.2 mmol/L (-2.0-2.0); BG CARBOXYHEMOGLOBIN 1.9 % (0.5-1.5); BG DEOXYHEMOGLOBIN 0.3 % (0.0-5.0); BG FRACTION INSPIRED OXYGEN 100; BG HCO3 ACT 11.1 mmol/L (22.0-26.0); BG METHEMOGLOBIN 2.1 % (0.0-1.5); BG OXYGEN SATURATION 99.7 % (92.0-98.5); BG OXYHEMOGLOBIN 95.7 % (94.0-97.0); BG PCO2 27.8 mmHg (35.0-45.0); BG PO2 504.9 mmHg (75.0-100.0); BG SAMPLE SITE A-LINE; BG TIDAL VOLUME(mL) 500 mL; BG TOTAL HEMOGLOBIN 8.7 g/dL (12.0-18.0); BG VENT MODE VENT - A/C; BG VENT RATE 30 set
[2018-12-10 14:57] LABS: HEMATOCRIT. 25.7 % (42.0-52.0); HEMOGLOBIN. 8.2 g/dL (14.0-18.0); MEAN CORPUSCULAR HEMOGLOBIN 29.9 pg (28.0-32.0); MEAN CORPUSCULAR VOLUME 93.1 fL (80.0-94.0); MEAN PLATELET VOLUME 8.8 fl (7.4-10.4); PLATELET 116 x1000/uL (130-400); RED BLOOD CELL COUNT 2.76 mill/uL (4.7-6.1); RED CELL DISTRIBUTION WIDTH 23.9 % (11.6-14.6)
[2018-12-10 15:05] LABS: CHLORIDE 103 mEq/L (98-107)
[2018-12-10 15:23] LABS: PLATELET ESTIMATE DECREASED
[2018-12-10] MEDS: PROPOFOL 10MG/ML 100ML 100 ML IV SCH (23:16)
[2018-12-11] VITALS (120 sets, daily range): BP systolic 5–143; BP diastolic 4–76
[2018-12-11] MEDS: IPRATROPIUM/ALBUTEROL 0.5-3(2.5)MG/3ML NEB HHN SCH ×3 (00:16→08:13)
[2018-12-11] MEDS: ACETYLCYSTEINE 100MG/ML 10% VIAL 4ML INH SCH ×2 (00:17→08:13)
[2018-12-11] MEDS: INSULIN LISPRO 100 UNITS/ML SUBCUT SCH ×4 (01:26→17:24)
[2018-12-11] MEDS: PHENYLEPHRINE 80 MG in SODIUM CHLORIDE 0.9% 492 ML IV PRN ×3 (03:08→17:25)
[2018-12-11] MEDS: NOREPINEPHRINE 32 MG in SODIUM CHLORIDE 0.9% 468 ML IV PRN ×2 (03:09→17:25)
[2018-12-11] MEDS: DOPAMINE 800MG PREMIX (DOUBLE) 250 ML IV PRN (03:11)
[2018-12-11 05:56] LABS: HEMATOCRIT. 27.6 % (42.0-52.0); HEMOGLOBIN. 8.6 g/dL (14.0-18.0); MEAN CORPUSCULAR HEMOGLOBIN 28.9 pg (28.0-32.0); MEAN CORPUSCULAR VOLUME 92.6 fL (80.0-94.0); MEAN PLATELET VOLUME 10.3 fl (7.4-10.4); PLATELET 81 x1000/uL (130-400); RED BLOOD CELL COUNT 2.98 mill/uL (4.7-6.1); RED CELL DISTRIBUTION WIDTH 23.8 % (11.6-14.6)
[2018-12-11 06:37] LABS: PLATELET ESTIMATE DECREASED
[2018-12-11] MEDS: BLOOD SUGAR DIAGNOSTIC STRIP TEST SCH ×4 (06:40→17:04)
[2018-12-11] MEDS: METOCLOPRAMIDE HCL 10MG/2ML VIAL IV SCH ×4 (06:43→17:11)
[2018-12-11 07:12] LABS: BG BASE EXCESS -10.6 mmol/L (-2.0-2.0); BG CARBOXYHEMOGLOBIN 1.7 % (0.5-1.5); BG DEOXYHEMOGLOBIN 1.5 % (0.0-5.0); BG HCO3 ACT 13.1 mmol/L (22.0-26.0); BG METHEMOGLOBIN 0.7 % (0.0-1.5); BG OXYGEN SATURATION 98.5 % (92.0-98.5); BG OXYHEMOGLOBIN 96.1 % (94.0-97.0); BG PCO2 22.5 mmHg (35.0-45.0); BG PH 7.382 (7.350-7.450); BG PO2 116.6 mmHg (75.0-100.0); BG SAMPLE SITE A-LINE; BG TIDAL VOLUME(mL) 500 mL; BG TOTAL HEMOGLOBIN 8.9 g/dL (12.0-18.0); BG VENT MODE VENT - A/C; BG VENT RATE 30 set
[2018-12-11 08:35] LABS: INR 2.1; PARTIAL THROMBOPLASTIN TIME 48.5 sec (23.4-31.0); PROTHROMBIN TIME 20.8 sec (9.6-11.0)
[2018-12-11] MEDS: GUAIFENESIN 600MG ER TABLET PO SCH ×2 (09:00→21:31)
[2018-12-11] MEDS: MEGESTROL ACETATE 400 MG/10 ML UDC PO SCH (09:00)
[2018-12-11] MEDS: SILVER SULFADIAZINE 1% CREAM 25GM TOP SCH (09:00)
[2018-12-11] MEDS ORDERED: PROPOFOL 10MG/ML 100ML 100 ML IV PRN (10:00)
[2018-12-11] MEDS: PANTOPRAZOLE SODIUM 40 MG/VIAL IV SCH (10:04)
[2018-12-11] MEDS: MEROPENEM 1,000 MG in SODIUM CHLORIDE 0.9% 100 ML IV SCH (10:04)
[2018-12-11] MEDS: ASPIRIN 325MG TABLET PO SCH (10:05)
[2018-12-11] MEDS: MIDODRINE HCL 5MG TABLET PO SCH ×3 (10:05→17:12)
[2018-12-11] MEDS: FOLIC ACID/VITAMIN B COMP W-C TABLET PO SCH (10:05)
[2018-12-11] MEDS: CLOPIDOGREL 75MG TABLET PO SCH (10:06)
[2018-12-11] MEDS ORDERED: VANCOMYCIN 1 G PREMIX 200 ML IV NR (10:30)
[2018-12-11] MEDS ORDERED: POTASSIUM CHLORIDE 20MEQ TABLET SR PO NR (10:45)
[2018-12-11] MEDS: SODIUM BICARBONATE 150 MEQ in DEXTROSE 5% WATER 1,000 ML IV SCH ×3 (11:33)
[2018-12-11] MEDS: IPRATROPIUM BROMIDE (0.02%) 0.5MG/2.5ML NEB HHN SCH ×5 (11:38→23:48)
[2018-12-11] MEDS ORDERED: POTASSIUM CHLORIDE 20MEQ/PACKET NG NR (11:45)
[2018-12-11] MEDS: PROPOFOL 10MG/ML 100ML 100 ML IV SCH (12:37)
[2018-12-11] MEDS ORDERED: PHYTONADIONE 10MG/ML AMP SUBCUT SCH (12:45)
[2018-12-11] MEDS ORDERED: INSULIN LISPRO 100 UNITS/ML SUBCUT NR (17:00)
[2018-12-11] MEDS ORDERED: MAGNESIUM 1 G PREMIX 100 ML IV NR (17:00)
[2018-12-11] MEDS: INSULIN GLARGINE UD 100 UNITS/ML SYR SUBCUT SCH (17:49)
[2018-12-11] MEDS ORDERED: INSULIN GLARGINE UD 100 UNITS/ML SYR SUBCUT SCH (18:00)
[2018-12-11] MEDS ORDERED: METOPROLOL TARTRATE 5MG/5ML VIAL IV ONE (18:30)
[2018-12-11] MEDS ORDERED: LIDOCAINE HCL 2% 5ML SYRINGE IV NR (18:30)
[2018-12-11] MEDS ORDERED: METOPROLOL TARTRATE 5MG/5ML VIAL IV NR (18:30)
[2018-12-11] MEDS ORDERED: ESMOLOL 2500MG PREMIX 250 ML IV SCH (19:00)
[2018-12-11] MEDS ORDERED: ALBUMIN HUMAN 12.5GM/50ML (25%) IV SCH (21:00)
[2018-12-12] VITALS (98 sets, daily range): BP systolic 62–115; BP diastolic 48–67
[2018-12-12] MEDS: BLOOD SUGAR DIAGNOSTIC STRIP TEST SCH ×5 (00:36→23:34)
[2018-12-12] MEDS: METOCLOPRAMIDE HCL 10MG/2ML VIAL IV SCH ×5 (00:45→23:34)
[2018-12-12] MEDS: DOPAMINE 800MG PREMIX (DOUBLE) 250 ML IV PRN ×2 (00:46→23:34)
[2018-12-12] MEDS: INSULIN LISPRO 100 UNITS/ML SUBCUT SCH ×5 (00:47→23:34)
[2018-12-12] MEDS: PHENYLEPHRINE 80 MG in SODIUM CHLORIDE 0.9% 492 ML IV PRN ×4 (01:16→23:53)
[2018-12-12] MEDS: ALBUMIN HUMAN 25GM/100ML (25%) IV SCH ×3 (02:59→15:04)
[2018-12-12] MEDS: IPRATROPIUM BROMIDE (0.02%) 0.5MG/2.5ML NEB HHN SCH ×6 (04:03→23:37)
[2018-12-12 04:50] LABS: HEMATOCRIT. 23.4 % (42.0-52.0); HEMOGLOBIN. 7.9 g/dL (14.0-18.0); MEAN CORPUSCULAR HEMOGLOBIN 29.1 pg (28.0-32.0); MEAN CORPUSCULAR VOLUME 86.7 fL (80.0-94.0); RED CELL DISTRIBUTION WIDTH 24.1 % (11.6-14.6)
[2018-12-12] MEDS ORDERED: POTASSIUM CHLORIDE 20MEQ/PACKET PO NR (06:00)
[2018-12-12 07:04] LABS: NUCLEATED RED BLOOD CELLS 3 /100 WBC
[2018-12-12 07:06] LABS: PLATELET ESTIMATE DECREASED
[2018-12-12 07:07] LABS: MEAN PLATELET VOLUME 10.2 fl (7.4-10.4); PLATELET 55 x1000/uL (130-400)
[2018-12-12] MEDS ORDERED: ESMOLOL 2500MG PREMIX 250 ML IV PRN ×2 (07:40→15:32)
[2018-12-12 08:12] LABS: BG BASE EXCESS -1.7 mmol/L (-2.0-2.0); BG CARBOXYHEMOGLOBIN 0.8 % (0.5-1.5); BG DEOXYHEMOGLOBIN 0.1 % (0.0-5.0); BG FRACTION INSPIRED OXYGEN 100; BG HCO3 ACT 19.7 mmol/L (22.0-26.0); BG METHEMOGLOBIN 0.6 % (0.0-1.5); BG OXYGEN SATURATION 99.9 % (92.0-98.5); BG OXYHEMOGLOBIN 98.5 % (94.0-97.0); BG PCO2 22.4 mmHg (35.0-45.0); BG PH 7.561 (7.350-7.450); BG PO2 447.5 mmHg (75.0-100.0); BG SAMPLE SITE RIGHT RADIAL; BG TIDAL VOLUME(mL) 500 mL; BG TOTAL HEMOGLOBIN 8.5 g/dL (12.0-18.0); BG VENT MODE VENT - A/C; BG VENT RATE 30 set
[2018-12-12] MEDS: MEROPENEM 1,000 MG in SODIUM CHLORIDE 0.9% 100 ML IV SCH (08:52)
[2018-12-12] MEDS: ASPIRIN 325MG TABLET PO SCH (08:54)
[2018-12-12] MEDS: FOLIC ACID/VITAMIN B COMP W-C TABLET PO SCH (08:54)
[2018-12-12] MEDS: GUAIFENESIN 600MG ER TABLET PO SCH ×2 (08:55→20:30)
[2018-12-12] MEDS: MEGESTROL ACETATE 400 MG/10 ML UDC PO SCH (08:55)
[2018-12-12] MEDS: MIDODRINE HCL 5MG TABLET PO SCH ×3 (08:55→16:17)
[2018-12-12] MEDS: PANTOPRAZOLE SODIUM 40 MG/VIAL IV SCH (08:55)
[2018-12-12] MEDS: SILVER SULFADIAZINE 1% CREAM 25GM TOP SCH (08:58)
[2018-12-12] MEDS: CLOPIDOGREL 75MG TABLET PO SCH (08:58)
[2018-12-12] MEDS ORDERED: LORAZEPAM 2MG/ML CPJ IV PRN (09:45)
[2018-12-12] MEDS: INSULIN GLARGINE UD 100 UNITS/ML SYR SUBCUT SCH (10:23)
[2018-12-12] MEDS ORDERED: LIDOCAINE HCL 2% 5ML SYRINGE IV NR (10:55)
[2018-12-12] MEDS: SODIUM BICARBONATE 150 MEQ in DEXTROSE 5% WATER 1,000 ML IV SCH ×3 (12:08)
[2018-12-12] MEDS: MICAFUNGIN 100 MG in SODIUM CHLORIDE 0.9% 100 ML IV SCH (12:09)
[2018-12-12] MEDS ORDERED: POTASSIUM CHLORIDE 20MEQ/PACKET PO SCH (12:30)
[2018-12-12] MEDS ORDERED: MAGNESIUM 1 G PREMIX 100 ML IV SCH (12:30)
[2018-12-12] MEDS: NOREPINEPHRINE 32 MG in SODIUM CHLORIDE 0.9% 468 ML IV PRN (13:08)
[2018-12-12 13:55] LABS: BG BASE EXCESS -1.3 mmol/L (-2.0-2.0); BG CARBOXYHEMOGLOBIN 0.9 % (0.5-1.5); BG DEOXYHEMOGLOBIN 0.5 % (0.0-5.0); BG FRACTION INSPIRED OXYGEN 50; BG HCO3 ACT 20.2 mmol/L (22.0-26.0); BG METHEMOGLOBIN 0.5 % (0.0-1.5); BG OXYGEN SATURATION 99.5 % (92.0-98.5); BG OXYHEMOGLOBIN 98.1 % (94.0-97.0); BG PCO2 23.5 mmHg (35.0-45.0); BG PH 7.553 (7.350-7.450); BG PO2 185.1 mmHg (75.0-100.0); BG SAMPLE SITE RIGHT BRACHIAL; BG TIDAL VOLUME(mL) 500 mL; BG TOTAL HEMOGLOBIN 8.5 g/dL (12.0-18.0); BG VENT MODE VENT - A/C
[2018-12-12 14:35] LABS: BG VENT RATE 26 set
[2018-12-12] MEDS ORDERED: KCL 10MEQ/50ML PREMIX 50 ML IV NR (15:00)
[2018-12-12 15:59] LABS: TOTAL IRON BINDING CAPACITY 170 ug/dL (250-450)
[2018-12-12] MEDS ORDERED: MAGNESIUM 2 G PREMIX 50 ML IV NR (16:00)
[2018-12-12 16:30] LABS: VITAMIN B12 SERUM > 2000.0 pg/mL (211-911)
[2018-12-12] MEDS: IPRATROPIUM/ALBUTEROL 0.5-3(2.5)MG/3ML NEB INH PRN (16:39)
[2018-12-13] VITALS (67 sets, daily range): BP systolic 63–104; BP diastolic 34–68
[2018-12-13] MEDS ORDERED: KCL 20MEQ/100ML PREMIX 100 ML IV NR
[2018-12-13] MEDS ORDERED: LIDOCAINE HCL 2% 5ML SYRINGE IV NR ×2 (00:30→18:30)
[2018-12-13] MEDS: IPRATROPIUM BROMIDE (0.02%) 0.5MG/2.5ML NEB HHN SCH ×5 (03:56→20:05)
[2018-12-13] MEDS: INSULIN LISPRO 100 UNITS/ML SUBCUT SCH ×3 (05:30→17:41)
[2018-12-13] MEDS: BLOOD SUGAR DIAGNOSTIC STRIP TEST SCH ×3 (05:30→17:39)
[2018-12-13] MEDS: METOCLOPRAMIDE HCL 10MG/2ML VIAL IV SCH ×3 (05:30→17:39)
[2018-12-13] MEDS: NOREPINEPHRINE 32 MG in SODIUM CHLORIDE 0.9% 468 ML IV PRN (06:09)
[2018-12-13 06:22] LABS: HEMATOCRIT. 27.8 % (42.0-52.0); MEAN CORPUSCULAR HEMOGLOBIN 29.2 pg (28.0-32.0); MEAN CORPUSCULAR VOLUME 90.5 fL (80.0-94.0); MEAN PLATELET VOLUME 9.6 fl (7.4-10.4); RED BLOOD CELL COUNT 3.07 mill/uL (4.7-6.1); RED CELL DISTRIBUTION WIDTH 23.9 % (11.6-14.6)
[2018-12-13 06:26] LABS: INR 1.3; PARTIAL THROMBOPLASTIN TIME 42.4 sec (23.4-31.0); PROTHROMBIN TIME 13.1 sec (9.6-11.0)
[2018-12-13 06:28] LABS: PLATELET 44 x1000/uL (130-400)
[2018-12-13 07:09] LABS: BG BASE EXCESS -0.6 mmol/L (-2.0-2.0); BG CARBOXYHEMOGLOBIN 0.6 % (0.5-1.5); BG DEOXYHEMOGLOBIN 0.5 % (0.0-5.0); BG HCO3 ACT 22.4 mmol/L (22.0-26.0); BG METHEMOGLOBIN 0.5 % (0.0-1.5); BG OXYGEN SATURATION 99.5 % (92.0-98.5); BG OXYHEMOGLOBIN 98.4 % (94.0-97.0); BG PCO2 30.1 mmHg (35.0-45.0); BG PH 7.489 (7.350-7.450); BG PO2 170.7 mmHg (75.0-100.0); BG SAMPLE SITE LEFT RADIAL; BG TIDAL VOLUME(mL) 500 mL; BG TOTAL HEMOGLOBIN 8.7 g/dL (12.0-18.0); BG VENT MODE VENT - A/C; BG VENT RATE 22 set
[2018-12-13] MEDS: PHENYLEPHRINE 80 MG in SODIUM CHLORIDE 0.9% 492 ML IV PRN ×3 (07:36→21:55)
[2018-12-13] MEDS: MEGESTROL ACETATE 400 MG/10 ML UDC PO SCH (08:18)
[2018-12-13] MEDS: PANTOPRAZOLE SODIUM 40 MG/VIAL IV SCH (08:18)
[2018-12-13] MEDS: GUAIFENESIN 600MG ER TABLET PO SCH ×2 (08:18→20:40)
[2018-12-13] MEDS: MEROPENEM 1,000 MG in SODIUM CHLORIDE 0.9% 100 ML IV SCH (08:19)
[2018-12-13] MEDS: FOLIC ACID/VITAMIN B COMP W-C TABLET PO SCH (08:30)
[2018-12-13] MEDS: MIDODRINE HCL 5MG TABLET PO SCH ×3 (08:31→17:41)
[2018-12-13] MEDS: SILVER SULFADIAZINE 1% CREAM 25GM TOP SCH (08:33)
[2018-12-13] MEDS ORDERED: POTASSIUM CHLORIDE INJ 40 MEQ in DEXT 5% WATER 250 ML IV SCH (09:00)
[2018-12-13 09:14] LABS: NUCLEATED RED BLOOD CELLS 7 /100 WBC; PLATELET ESTIMATE MARKEDLY DECREASED
[2018-12-13] MEDS: INSULIN GLARGINE UD 100 UNITS/ML SYR SUBCUT SCH (10:17)
[2018-12-13] MEDS: ASPIRIN 81MG TABLET PO SCH (10:56)
[2018-12-13] MEDS: CLOPIDOGREL 75MG TABLET PO SCH (10:56)
[2018-12-13] MEDS: MICAFUNGIN 100 MG in SODIUM CHLORIDE 0.9% 100 ML IV SCH (11:39)
[2018-12-13] MEDS ORDERED: KCL 20MEQ/100ML PREMIX 100 ML IV SCH ×2 (18:00→20:00)
[2018-12-13] MEDS ORDERED: AMIODARONE HCL 900 MG in DEXT 5% WATER 482 ML IV PRN (19:45)
[2018-12-13] MEDS: AMIODARONE HCL 900 MG in DEXT 5% WATER 482 ML IV PRN (20:31)
[2018-12-13] MEDS ORDERED: EPINEPHRINE 0.1MG/ML (1:10,000) 10ML SYR ONE (21:20)
[2018-12-13] MEDS ORDERED: LIDOCAINE HCL 2% 5ML SYRINGE IV ONE (21:20)
[2018-12-13] MEDS ORDERED: MAGNESIUM SULFATE 4G IN WATER 100ML PREMIX IV ONE (21:20)
[2018-12-13] MEDS ORDERED: SODIUM BICARBONATE 7.5% 0.9 MEQ/ML 50ML SYR IV ONE (21:20)
[2018-12-13] MEDS ORDERED: MORPHINE SULFATE 10 MG/ML CPJ ONE (21:29)
[2018-12-14] VITALS (49 sets, daily range): BP systolic 81–106; BP diastolic 45–73
[2018-12-14] MEDS: DOPAMINE 800MG PREMIX (DOUBLE) 250 ML IV PRN ×2 (00:05→14:24)
[2018-12-14] MEDS: IPRATROPIUM BROMIDE (0.02%) 0.5MG/2.5ML NEB HHN SCH ×6 (00:30→20:50)
[2018-12-14 00:35] LABS: BG BASE EXCESS -1.5 mmol/L (-2.0-2.0); BG CARBOXYHEMOGLOBIN 0.5 % (0.5-1.5); BG DEOXYHEMOGLOBIN 0.1 % (0.0-5.0); BG FRACTION INSPIRED OXYGEN 100; BG HCO3 ACT 21.2 mmol/L (22.0-26.0); BG METHEMOGLOBIN 0.5 % (0.0-1.5); BG OXYGEN SATURATION 99.9 % (92.0-98.5); BG OXYHEMOGLOBIN 98.9 % (94.0-97.0); BG PCO2 28.4 mmHg (35.0-45.0); BG PH 7.491 (7.350-7.450); BG PO2 370.3 mmHg (75.0-100.0); BG SAMPLE SITE RIGHT RADIAL; BG TIDAL VOLUME(mL) 500 mL; BG TOTAL HEMOGLOBIN 8.9 g/dL (12.0-18.0); BG VENT MODE VENT - A/C; BG VENT RATE 22 set
[2018-12-14] MEDS: BLOOD SUGAR DIAGNOSTIC STRIP TEST SCH ×4 (00:49→17:48)
[2018-12-14] MEDS: METOCLOPRAMIDE HCL 10MG/2ML VIAL IV SCH ×4 (00:56→17:57)
[2018-12-14] MEDS: INSULIN LISPRO 100 UNITS/ML SUBCUT SCH ×4 (00:57→17:58)
[2018-12-14] MEDS: NOREPINEPHRINE 32 MG in SODIUM CHLORIDE 0.9% 468 ML IV PRN ×2 (01:59→21:17)
[2018-12-14] MEDS: PHENYLEPHRINE 80 MG in SODIUM CHLORIDE 0.9% 492 ML IV PRN ×3 (05:12→21:17)
[2018-12-14 06:38] LABS: HEMATOCRIT. 30.6 % (42.0-52.0); HEMOGLOBIN. 9.9 g/dL (14.0-18.0); MEAN CORPUSCULAR HEMOGLOBIN 29.8 pg (28.0-32.0); MEAN CORPUSCULAR VOLUME 92.3 fL (80.0-94.0); MEAN PLATELET VOLUME 10.9 fl (7.4-10.4); RED BLOOD CELL COUNT 3.31 mill/uL (4.7-6.1); RED CELL DISTRIBUTION WIDTH 23.7 % (11.6-14.6)
[2018-12-14 06:41] LABS: PLATELET 46 x1000/uL (130-400)
[2018-12-14] MEDS ORDERED: POTASSIUM CHLORIDE INJ 40 MEQ in DEXT 5% WATER 250 ML IV NR (08:00)
[2018-12-14] MEDS: FOLIC ACID/VITAMIN B COMP W-C TABLET PO SCH (08:07)
[2018-12-14] MEDS: ASPIRIN 81MG TABLET PO SCH (08:07)
[2018-12-14] MEDS: CLOPIDOGREL 75MG TABLET PO SCH (08:07)
[2018-12-14] MEDS: PANTOPRAZOLE SODIUM 40 MG/VIAL IV SCH (08:07)
[2018-12-14] MEDS: MEGESTROL ACETATE 400 MG/10 ML UDC PO SCH (08:07)
[2018-12-14] MEDS: MIDODRINE HCL 5MG TABLET PO SCH ×3 (08:07→16:18)
[2018-12-14] MEDS: MEROPENEM 1,000 MG in SODIUM CHLORIDE 0.9% 100 ML IV SCH (08:07)
[2018-12-14] MEDS: GUAIFENESIN 600MG ER TABLET PO SCH ×2 (08:07→20:17)
[2018-12-14] MEDS: SILVER SULFADIAZINE 1% CREAM 25GM TOP SCH (08:43)
[2018-12-14 08:55] LABS: NUCLEATED RED BLOOD CELLS 1 /100 WBC; PLATELET ESTIMATE MARKEDLY DECREASED
[2018-12-14] MEDS: INSULIN GLARGINE UD 100 UNITS/ML SYR SUBCUT SCH (09:51)
[2018-12-14] MEDS: MICAFUNGIN 100 MG in SODIUM CHLORIDE 0.9% 100 ML IV SCH (12:02)
[2018-12-14] MEDS ORDERED: CALCIUM GLUCONATE 1,000 MG in DEXT 5% WATER 90 ML IV NR (13:00)
[2018-12-14] MEDS ORDERED: VANCOMYCIN 750 MG PREMIX 150 ML IV SCH (15:00)
[2018-12-14] MEDS: AMIODARONE HCL 900 MG in DEXT 5% WATER 482 ML IV PRN (21:18)
[2018-12-15] VITALS (84 sets, daily range): BP systolic 76–96; BP diastolic 48–70
[2018-12-15] MEDS: BLOOD SUGAR DIAGNOSTIC STRIP TEST SCH ×4 (00:01→17:58)
[2018-12-15] MEDS: METOCLOPRAMIDE HCL 10MG/2ML VIAL IV SCH ×4 (00:01→18:04)
[2018-12-15] MEDS: IPRATROPIUM BROMIDE (0.02%) 0.5MG/2.5ML NEB HHN SCH ×6 (00:24→20:37)
[2018-12-15] MEDS: INSULIN LISPRO 100 UNITS/ML SUBCUT SCH ×4 (05:43→18:06)
[2018-12-15 05:54] LABS: HEMATOCRIT. 22.8 % (42.0-52.0); HEMOGLOBIN. 7.6 g/dL (14.0-18.0); MEAN CORPUSCULAR HEMOGLOBIN 29.9 pg (28.0-32.0); MEAN CORPUSCULAR VOLUME 90.2 fL (80.0-94.0); RED BLOOD CELL COUNT 2.53 mill/uL (4.7-6.1); RED CELL DISTRIBUTION WIDTH 24.4 % (11.6-14.6)
[2018-12-15] MEDS: PHENYLEPHRINE 80 MG in SODIUM CHLORIDE 0.9% 492 ML IV PRN ×3 (06:13→23:01)
[2018-12-15 07:01] LABS: MEAN PLATELET VOLUME 9.8 fl (7.4-10.4); PLATELET 53 x1000/uL (130-400)
[2018-12-15 07:02] LABS: NUCLEATED RED BLOOD CELLS 3 /100 WBC; PLATELET ESTIMATE DECREASED
[2018-12-15] MEDS ORDERED: CALCIUM GLUCONATE 1,000 MG in DEXT 5% WATER 90 ML IV NR (08:00)
[2018-12-15] MEDS ORDERED: POTASSIUM CHLORIDE INJ 40 MEQ in DEXT 5% WATER 250 ML IV NR (08:00)
[2018-12-15 08:33] LABS: BG BASE EXCESS -0.5 mmol/L (-2.0-2.0); BG CARBOXYHEMOGLOBIN 1.8 % (0.5-1.5); BG DEOXYHEMOGLOBIN 0.3 % (0.0-5.0); BG FRACTION INSPIRED OXYGEN 60; BG HCO3 ACT 21.8 mmol/L (22.0-26.0); BG METHEMOGLOBIN 0.2 % (0.0-1.5); BG OXYGEN SATURATION 99.7 % (92.0-98.5); BG OXYHEMOGLOBIN 97.7 % (94.0-97.0); BG PH 7.525 (7.350-7.450); BG PO2 247.3 mmHg (75.0-100.0); BG SAMPLE SITE RIGHT RADIAL; BG TIDAL VOLUME(mL) 500 mL; BG VENT MODE VENT - A/C; BG VENT RATE 22 set
[2018-12-15] MEDS: MEROPENEM 1,000 MG in SODIUM CHLORIDE 0.9% 100 ML IV SCH (08:34)
[2018-12-15] MEDS: PANTOPRAZOLE SODIUM 40 MG/VIAL IV SCH (08:34)
[2018-12-15] MEDS: FOLIC ACID/VITAMIN B COMP W-C TABLET PO SCH (09:16)
[2018-12-15] MEDS: MEGESTROL ACETATE 400 MG/10 ML UDC PO SCH (09:17)
[2018-12-15] MEDS: MIDODRINE HCL 5MG TABLET PO SCH ×3 (09:17→18:05)
[2018-12-15] MEDS: CLOPIDOGREL 75MG TABLET PO SCH (09:17)
[2018-12-15] MEDS: GUAIFENESIN 600MG ER TABLET PO SCH ×2 (09:17→21:00)
[2018-12-15] MEDS: ASPIRIN 81MG TABLET PO SCH (09:17)
[2018-12-15] MEDS: SILVER SULFADIAZINE 1% CREAM 25GM TOP SCH (09:18)
[2018-12-15] MEDS: INSULIN GLARGINE UD 100 UNITS/ML SYR SUBCUT SCH (11:32)
[2018-12-15] MEDS: MICAFUNGIN 100 MG in SODIUM CHLORIDE 0.9% 100 ML IV SCH (11:34)
[2018-12-15] MEDS: THIAMINE HCL 100MG TABLET NG SCH ×2 (13:44→18:05)
[2018-12-15] MEDS ORDERED: POTASSIUM CHLORIDE INJ 40 MEQ in DEXT 5% WATER 250 ML IV PRN (14:00)
[2018-12-15] MEDS ORDERED: POTASSIUM CHLORIDE INJ 40 MEQ in DEXT 5% WATER 250 ML IV SCH (15:00)
[2018-12-15] MEDS: NOREPINEPHRINE 32 MG in SODIUM CHLORIDE 0.9% 468 ML IV PRN (18:06)
[2018-12-15] MEDS: EPOETIN ALFA 10000UNITS/ML VIAL SUBCUT SCH (21:18)
[2018-12-16] VITALS (76 sets, daily range): BP systolic 74–102; BP diastolic 35–69
[2018-12-16] MEDS: IPRATROPIUM BROMIDE (0.02%) 0.5MG/2.5ML NEB HHN SCH ×6 (00:16→22:45)
[2018-12-16] MEDS: BLOOD SUGAR DIAGNOSTIC STRIP TEST SCH ×5 (00:19→23:58)
[2018-12-16] MEDS: METOCLOPRAMIDE HCL 10MG/2ML VIAL IV SCH ×5 (00:22→23:44)
[2018-12-16] MEDS: INSULIN LISPRO 100 UNITS/ML SUBCUT SCH ×5 (00:40→23:45)
[2018-12-16] MEDS: AMIODARONE HCL 900 MG in DEXT 5% WATER 482 ML IV PRN (04:55)
[2018-12-16] MEDS: PHENYLEPHRINE 80 MG in SODIUM CHLORIDE 0.9% 492 ML IV PRN ×3 (06:23→22:02)
[2018-12-16 07:07] LABS: HEMOGLOBIN. 8.8 g/dL (14.0-18.0); MEAN CORPUSCULAR HEMOGLOBIN 29.7 pg (28.0-32.0); MEAN CORPUSCULAR VOLUME 90.9 fL (80.0-94.0); RED BLOOD CELL COUNT 2.98 mill/uL (4.7-6.1); RED CELL DISTRIBUTION WIDTH 22.2 % (11.6-14.6)
[2018-12-16 07:26] LABS: BG BASE EXCESS -2.3 mmol/L (-2.0-2.0); BG CARBOXYHEMOGLOBIN 0.7 % (0.5-1.5); BG DEOXYHEMOGLOBIN 1.6 % (0.0-5.0); BG HCO3 ACT 20.4 mmol/L (22.0-26.0); BG METHEMOGLOBIN 0.5 % (0.0-1.5); BG OXYGEN SATURATION 98.4 % (92.0-98.5); BG OXYHEMOGLOBIN 97.2 % (94.0-97.0); BG PCO2 27.6 mmHg (35.0-45.0); BG PH 7.486 (7.350-7.450); BG PO2 115.8 mmHg (75.0-100.0); BG SAMPLE SITE RIGHT RADIAL; BG TIDAL VOLUME(mL) 500 mL; BG TOTAL HEMOGLOBIN 9.2 g/dL (12.0-18.0); BG VENT MODE VENT - A/C; BG VENT RATE 18 set
[2018-12-16 07:32] LABS: CHLORIDE 100 mEq/L (98-107)
[2018-12-16] MEDS: GUAIFENESIN 600MG ER TABLET PO SCH ×2 (08:16→21:07)
[2018-12-16] MEDS: PANTOPRAZOLE SODIUM 40 MG/VIAL IV SCH (09:20)
[2018-12-16] MEDS: MEGESTROL ACETATE 400 MG/10 ML UDC PO SCH (09:20)
[2018-12-16] MEDS: FOLIC ACID/VITAMIN B COMP W-C TABLET PO SCH (09:21)
[2018-12-16] MEDS: MIDODRINE HCL 5MG TABLET PO SCH ×3 (09:21→17:48)
[2018-12-16] MEDS: CLOPIDOGREL 75MG TABLET PO SCH (09:21)
[2018-12-16] MEDS: THIAMINE HCL 100MG TABLET NG SCH ×2 (09:22→17:47)
[2018-12-16] MEDS: ASPIRIN 81MG TABLET PO SCH (09:22)
[2018-12-16] MEDS: MEROPENEM 1,000 MG in SODIUM CHLORIDE 0.9% 100 ML IV SCH (09:23)
[2018-12-16] MEDS: SILVER SULFADIAZINE 1% CREAM 25GM TOP SCH (09:47)
[2018-12-16] MEDS ORDERED: POTASSIUM CHLORIDE INJ 40 MEQ in DEXT 5% WATER 250 ML IV SCH (10:00)
[2018-12-16] MEDS ORDERED: MAGNESIUM 2 G PREMIX 50 ML IV SCH (10:00)
[2018-12-16] MEDS: INSULIN GLARGINE UD 100 UNITS/ML SYR SUBCUT SCH (10:36)
[2018-12-16 10:39] LABS: NUCLEATED RED BLOOD CELLS 2 /100 WBC
[2018-12-16 10:41] LABS: PLATELET ESTIMATE NORMAL
[2018-12-16 10:42] LABS: MEAN PLATELET VOLUME 13.1 fl (7.4-10.4); PLATELET 135 x1000/uL (130-400)
[2018-12-16] MEDS: MICAFUNGIN 100 MG in SODIUM CHLORIDE 0.9% 100 ML IV SCH (10:49)
[2018-12-16] MEDS: NOREPINEPHRINE 32 MG in SODIUM CHLORIDE 0.9% 468 ML IV PRN (16:31)
[2018-12-17] VITALS (99 sets, daily range): BP systolic 65–118; BP diastolic 37–73
[2018-12-17] MEDS: IPRATROPIUM BROMIDE (0.02%) 0.5MG/2.5ML NEB HHN SCH ×6 (00:24→21:27)
[2018-12-17] MEDS: PHENYLEPHRINE 80 MG in SODIUM CHLORIDE 0.9% 492 ML IV PRN ×3 (05:43→20:48)
[2018-12-17] MEDS: METOCLOPRAMIDE HCL 10MG/2ML VIAL IV SCH ×3 (05:44→17:17)
[2018-12-17] MEDS: BLOOD SUGAR DIAGNOSTIC STRIP TEST SCH ×3 (05:44→17:33)
[2018-12-17] MEDS: INSULIN LISPRO 100 UNITS/ML SUBCUT SCH ×3 (05:44→17:19)
[2018-12-17 06:31] LABS: CHLORIDE 102 mEq/L (98-107)
[2018-12-17] MEDS: PANTOPRAZOLE SODIUM 40 MG/VIAL IV SCH (08:10)
[2018-12-17] MEDS: MEROPENEM 1,000 MG in SODIUM CHLORIDE 0.9% 100 ML IV SCH (08:10)
[2018-12-17] MEDS: THIAMINE HCL 100MG TABLET NG SCH ×2 (08:10→17:17)
[2018-12-17] MEDS: CLOPIDOGREL 75MG TABLET PO SCH (08:10)
[2018-12-17] MEDS: FOLIC ACID/VITAMIN B COMP W-C TABLET PO SCH (08:10)
[2018-12-17] MEDS: MEGESTROL ACETATE 400 MG/10 ML UDC PO SCH (08:10)
[2018-12-17] MEDS: POTASSIUM CHLORIDE 20MEQ/PACKET PO SCH ×2 (08:10→17:18)
[2018-12-17] MEDS: ASPIRIN 81MG TABLET PO SCH (08:10)
[2018-12-17] MEDS: MIDODRINE HCL 5MG TABLET PO SCH ×3 (08:11→17:18)
[2018-12-17] MEDS: SILVER SULFADIAZINE 1% CREAM 25GM TOP SCH (08:11)
[2018-12-17] MEDS: GUAIFENESIN 600MG ER TABLET PO SCH ×2 (08:17→21:00)
[2018-12-17] MEDS: AMIODARONE HCL 900 MG in DEXT 5% WATER 482 ML IV PRN (08:30)
[2018-12-17] MEDS: INSULIN GLARGINE UD 100 UNITS/ML SYR SUBCUT SCH (09:17)
[2018-12-17] MEDS ORDERED: MAGNESIUM 2 G PREMIX 50 ML IV ONE (09:30)
[2018-12-17 09:31] LABS: BG BASE EXCESS -2.1 mmol/L (-2.0-2.0); BG DEOXYHEMOGLOBIN 0.8 % (0.0-5.0); BG FRACTION INSPIRED OXYGEN 40; BG HCO3 ACT 21.6 mmol/L (22.0-26.0); BG METHEMOGLOBIN 0.3 % (0.0-1.5); BG OXYGEN SATURATION 99.2 % (92.0-98.5); BG OXYHEMOGLOBIN 97.9 % (94.0-97.0); BG PCO2 32.4 mmHg (35.0-45.0); BG PH 7.441 (7.350-7.450); BG PO2 150.5 mmHg (75.0-100.0); BG SAMPLE SITE LEFT RADIAL; BG TIDAL VOLUME(mL) 500 mL; BG TOTAL HEMOGLOBIN 9.4 g/dL (12.0-18.0); BG VENT MODE VENT - A/C; BG VENT RATE 14 set
[2018-12-17] MEDS: NOREPINEPHRINE 32 MG in SODIUM CHLORIDE 0.9% 468 ML IV PRN (09:50)
[2018-12-17] MEDS ORDERED: VANCOMYCIN 750 MG PREMIX 150 ML IV NR (10:00)
[2018-12-17 10:38] LABS: HEMATOCRIT. 26.7 % (42.0-52.0); HEMOGLOBIN. 8.6 g/dL (14.0-18.0); MEAN CORPUSCULAR HEMOGLOBIN 29.9 pg (28.0-32.0); RED BLOOD CELL COUNT 2.87 mill/uL (4.7-6.1); RED CELL DISTRIBUTION WIDTH 23.8 % (11.6-14.6)
[2018-12-17 11:00] LABS: MEAN PLATELET VOLUME 12.7 fl (7.4-10.4); PLATELET 148 x1000/uL (130-400); PLATELET ESTIMATE NORMAL
[2018-12-17] MEDS ORDERED: POTASSIUM CHLORIDE INJ 40 MEQ in DEXT 5% WATER 250 ML IV NR ×3 (11:00)
[2018-12-17] MEDS ORDERED: MAGNESIUM SULFATE 3 GM in SODIUM CHLORIDE 0.9% 50 ML IV NR (11:00)
[2018-12-17] MEDS: MICAFUNGIN 100 MG in SODIUM CHLORIDE 0.9% 100 ML IV SCH (11:38)
[2018-12-17] MEDS ORDERED: LORAZEPAM 2MG/ML CPJ IV PRN (20:45)
[2018-12-17] MEDS ORDERED: MORPHINE SULFATE 250 MG in DEXT 5% WATER 225 ML IV PRN (20:45)
[2018-12-17] MEDS: EPOETIN ALFA 10000UNITS/ML VIAL SUBCUT SCH (21:00)
[2018-12-18] VITALS (43 sets, daily range): BP systolic 41–74; BP diastolic 20–49
[2018-12-18] MEDS: IPRATROPIUM BROMIDE (0.02%) 0.5MG/2.5ML NEB HHN SCH (00:45)
[2018-12-18] MEDS: PHENYLEPHRINE 80 MG in SODIUM CHLORIDE 0.9% 492 ML IV PRN (03:57)
[2018-12-18] MEDS: NOREPINEPHRINE 32 MG in SODIUM CHLORIDE 0.9% 468 ML IV PRN (05:33)
[2018-12-18] MEDS: BLOOD SUGAR DIAGNOSTIC STRIP TEST SCH ×2 (05:37)
[2018-12-18] MEDS: INSULIN LISPRO 100 UNITS/ML SUBCUT SCH ×2 (05:37)
[2018-12-18] MEDS: METOCLOPRAMIDE HCL 10MG/2ML VIAL IV SCH ×2 (05:37)
[2018-12-18] MEDS: MEROPENEM 1,000 MG in SODIUM CHLORIDE 0.9% 100 ML IV SCH (07:43)
[2018-12-18] MEDS: PANTOPRAZOLE SODIUM 40 MG/VIAL IV SCH (07:43)
[2018-12-18] MEDS: MEGESTROL ACETATE 400 MG/10 ML UDC PO SCH (07:44)
[2018-12-18] MEDS: MIDODRINE HCL 5MG TABLET PO SCH (07:44)
[2018-12-18] MEDS: FOLIC ACID/VITAMIN B COMP W-C TABLET PO SCH (07:44)
[2018-12-18] MEDS: ASPIRIN 81MG TABLET PO SCH (07:44)
[2018-12-18] MEDS: THIAMINE HCL 100MG TABLET NG SCH (07:44)
[2018-12-18] MEDS: GUAIFENESIN 600MG ER TABLET PO SCH (07:44)
[2018-12-18] MEDS: POTASSIUM CHLORIDE 20MEQ/PACKET PO SCH ×2 (07:44)
[2018-12-18] MEDS: CLOPIDOGREL 75MG TABLET PO SCH (07:44)
[2018-12-18] MEDS: SILVER SULFADIAZINE 1% CREAM 25GM TOP SCH (07:45)
[2018-12-18] MEDS ORDERED: MAGNESIUM OXIDE 400MG TABLET NG SCH (09:00)
== END 2018-12-18 09:53 | disposition expired | DRG 215 ==
LOC: ER 19:32 → CVICU 11-21 01:08 → EDBEDREQ 11-21 01:13 → EDBEDREQSVC 11-21 01:13 → EDBEDREQTM 11-21 01:13 → ENRESERV 11-21 01:46
PROVIDERS: ADMIT Internal Medicine; ATTEND Internal Medicine
PROC: 4A00X4Z Measurement of Central Nervous Electrical Activity, External Approach (ICD-10-PCS; 2018-11-21)
PROC: 06HY33Z Insertion of Infusion Device into Lower Vein, Percutaneous Approach (ICD-10-PCS; 2018-11-21)
PROC: B54CZZA Ultrasonography of Left Lower Extremity Veins, Guidance (ICD-10-PCS; 2018-11-21)
PROC: 3E1M39Z Irrigation of Peritoneal Cavity using Dialysate, Percutaneous Approach (ICD-10-PCS; 2018-11-21)
PROC: 02HV33Z Insertion of Infusion Device into Superior Vena Cava, Percutaneous Approach (ICD-10-PCS; 2018-11-25)
PROC: B5181ZA Fluoroscopy of Superior Vena Cava using Low Osmolar Contrast, Guidance (ICD-10-PCS; 2018-11-25)
PROC: B548ZZA Ultrasonography of Superior Vena Cava, Guidance (ICD-10-PCS; 2018-11-25)
PROC: 0BH17EZ Insertion of Endotracheal Airway into Trachea, Via Natural or Artificial Opening (ICD-10-PCS; 2018-11-27)
PROC: 5A1955Z Respiratory Ventilation, Greater than 96 Consecutive Hours (ICD-10-PCS; 2018-11-27)
PROC: 0QBM0ZZ Excision of Left Tarsal, Open Approach (ICD-10-PCS; 2018-12-01)
PROC: 4A023N7 Measurement of Cardiac Sampling and Pressure, Left Heart, Percutaneous Approach (ICD-10-PCS; 2018-12-04)
PROC: B2111ZZ Fluoroscopy of Multiple Coronary Arteries using Low Osmolar Contrast (ICD-10-PCS; 2018-12-04)
PROC: 5A02210 Assistance with Cardiac Output using Balloon Pump, Continuous (ICD-10-PCS; 2018-12-05)
PROC: B41G1ZZ Fluoroscopy of Left Lower Extremity Arteries using Low Osmolar Contrast (ICD-10-PCS; 2018-12-05)
PROC: 02HA3RZ Insertion of Short-term External Heart Assist System into Heart, Percutaneous Approach (ICD-10-PCS; principal; 2018-12-09)
PROC: 5A0221D Assistance with Cardiac Output using Impeller Pump, Continuous (ICD-10-PCS; 2018-12-09)
PROC: 027036Z Dilation of Coronary Artery, One Artery with Three Drug-eluting Intraluminal Devices, Percutaneous Approach (ICD-10-PCS; 2018-12-09)
PROC: 30233R1 Transfusion of Nonautologous Platelets into Peripheral Vein, Percutaneous Approach (ICD-10-PCS; 2018-12-09)
PROC: 02PA3RZ Removal of Short-term External Heart Assist System from Heart, Percutaneous Approach (ICD-10-PCS; 2018-12-10)
PROC: 5A02210 Assistance with Cardiac Output using Balloon Pump, Continuous (ICD-10-PCS; 2018-12-10)
PROC: 4A023N6 Measurement of Cardiac Sampling and Pressure, Right Heart, Percutaneous Approach (ICD-10-PCS; 2018-12-10)
PROC: 30233K1 Transfusion of Nonautologous Frozen Plasma into Peripheral Vein, Percutaneous Approach (ICD-10-PCS; 2018-12-11)
PROC: 5A12012 Performance of Cardiac Output, Single, Manual (ICD-10-PCS; 2018-12-13)
PROC: 30233N1 Transfusion of Nonautologous Red Blood Cells into Peripheral Vein, Percutaneous Approach (ICD-10-PCS; 2018-12-15)
DX: I21.4 Non-ST elevation (NSTEMI) myocardial infarction (principal); E43 Unspecified severe protein-calorie malnutrition; N18.6 End stage renal disease; I50.43 Acute on chronic combined systolic (congestive) and diastolic (congestive) heart failure; J69.0 Pneumonitis due to inhalation of food and vomit; D65 Disseminated intravascular coagulation [defibrination syndrome]; K72.00 Acute and subacute hepatic failure without coma; J96.01 Acute respiratory failure with hypoxia; D68.9 Coagulation defect, unspecified; G93.40 Encephalopathy, unspecified; I13.2 Hypertensive heart and chronic kidney disease with heart failure and with stage 5 chronic kidney disease, or end stage renal disease; I42.9 Cardiomyopathy, unspecified; M86.9 Osteomyelitis, unspecified; L03.116 Cellulitis of left lower limb; I47.2 Ventricular tachycardia; R18.8 Other ascites; E87.1 Hypo-osmolality and hyponatremia; Z66 Do not resuscitate; R57.0 Cardiogenic shock; E11.22 Type 2 diabetes mellitus with diabetic chronic kidney disease; I48.2 Chronic atrial fibrillation; I27.29 Other secondary pulmonary hypertension; I27.81 Cor pulmonale (chronic); Z99.2 Dependence on renal dialysis; L97.529 Non-pressure chronic ulcer of other part of left foot with unspecified severity; E11.621 Type 2 diabetes mellitus with foot ulcer; D63.8 Anemia in other chronic diseases classified elsewhere; E11.21 Type 2 diabetes mellitus with diabetic nephropathy; E11.51 Type 2 diabetes mellitus with diabetic peripheral angiopathy without gangrene; E11.610 Type 2 diabetes mellitus with diabetic neuropathic arthropathy; E83.42 Hypomagnesemia; E87.6 Hypokalemia; I08.1 Rheumatic disorders of both mitral and tricuspid valves; I25.10 Atherosclerotic heart disease of native coronary artery without angina pectoris; I87.8 Other specified disorders of veins; L89.629 Pressure ulcer of left heel, unspecified stage; Z96.41 Presence of insulin pump (external) (internal); Z79.01 Long term (current) use of anticoagulants; Z79.4 Long term (current) use of insulin; Z79.899 Other long term (current) drug therapy; Z82.49 Family history of ischemic heart disease and other diseases of the circulatory system; Z86.73 Personal history of transient ischemic attack (TIA), and cerebral infarction without residual deficits; Z89.422 Acquired absence of other left toe(s); Z89.511 Acquired absence of right leg below knee; Z88.8 Allergy status to other drugs, medicaments and biological substances; Z79.2 Long term (current) use of antibiotics; Z68.22 Body mass index [BMI] 22.0-22.9, adult
CPT/HCPCS: 33967; 33990; 33992; 36415; 36569; 36600; 71045; 73630; 73721; 76604; 76937; 80048; 80061; 80076; 80162; 80202; 80305; 82375; 82550; 82553; 82607; 82805; 82962; 83540; 83550; 83605; 83735; 83880; 84100; 84132; 84145; 84443; 84450; 84460; 84478; 84484; 85027; 85049; 85347; 85379; 85384; 85732; 86022; 86850; 86900; 86920; 86927; 86945; 87070; 87077; 87106; 87186; 87804; 92928; 92950; 93005; 93306; 93308; 93451; 93454; 93458; 93923; 94003; 94640; 96361; 96365; 97162; 99291; A6261; C1725; C1726; C1760; C1769; C1874; C1887; C1893; C9113; J0282; J0330; J0456; J0610; J0692; J0696; J0885; J1265; J1644; J1650; J1815; J2060; J2185; J2248; J2250; J2270; J2370; J2405; J2543; J2704; J2765; J3010; J3370; J3430; J3475; J3480; J3490; J7030; J7040; J7042; J7050; J7060; J7070; J7131; J7608; J7620; L1830; P9017; P9021; P9034; P9047; Q9967